=== PATIENT | female | born 1955 | race Caucasian/White ===

== ENCOUNTER 2022-10-27 06:11 | Inpatient (IN) | payer OTHER, SELFPAY ==
[2022-10-20 13:46] VITALS: BMI 27.8
[2022-10-27] VITALS (19 sets, daily range): BP systolic 85–114; BP diastolic 45–72; PULSE 63–96; RESP 10–18; TEMP 36.2–36.6; O2SAT 92–98; BMI 28.2
[2022-10-27] MEDS: LACTATED RINGERS 1,000 ML 42 ML IV ×3 (06:55→11:52)
[2022-10-27 07:20] LABS: COVID19 -Nasal RAPID Negative (Negative)
--- NOTE | 2022-10-27 07:44 | PM.PREOP ---
Pre-operative Note COVID-19 COVID-19 status: Negative Result date/Date tested (Pos, Neg/Pending): 10/26/22 Criteria for continued procedure: Expected advancement of disease process, Possibility delay results in more complex future surgery or treatment, Increased loss of function, Continuing or worsening of significant or severe pain, Deterioration of the patient's condition or overall health and Delay expected to result in less-positive ultimate med/surg outcome Interval Note History & Physical reviewed/Exam performed by Physician: Yes Changes to H&P: No
[2022-10-27] MEDS: CEFAZOLIN 2 GM/100 ML PREMIX 100 ML IV ×3 (07:57→23:23)
--- NOTE | 2022-10-27 08:25 | SUR.OPER ---
Prone on spine table, head in foam head support, padded chest and pelvic supports, gel pad at knees, lower legs supported by pillows; nipples, genitalia and toes free of pressure, arms secured on foam padded arm boards at <90 degrees abduction. Tape over blanket at thigh secured to table. pt positioned per direction and supervision of Dr Fernandez.
[2022-10-27] MEDS: BUPIVACAINE LIPOSOME 266 MG/20 ML VIAL INJ (08:32)
[2022-10-27] MEDS: BUPIVACAINE 0.25% W/ EPI 30 ML VIAL INJ (08:33)
--- NOTE | 2022-10-27 11:03 | DI.RAD.S_ITS ---
PROCEDURE: XR LUMBAR SPINE 2-3V INDICATIONS: L4-5, L5-S1 TLIF TECHNIQUE: 2 spot fluoroscopic intraoperative views of the lumbar spine were acquired. COMPARISON: [facility], CT, CT LUMBAR SPINE WITHOUT CONTRAST, 10/01/2022, 15:17. FINDINGS: Fluoroscopic images demonstrate spinal fixation at L4 through S1 with bilateral pedicle screws and interbody rods as well as disc spacers. Hardware components appear to be in appropriate positions. Previously seen L3 compression fracture is only partially imaged. IMPRESSION: Status post posterior lumbar spinal fixation with hardware in expected positions. Approved by: Reggie Lynch M.D. on 10/27/2022 at 11:24
--- NOTE | 2022-10-27 11:31 | P.OP_ITS ---
Operative Date/Time/Diagnoses Date of procedure: 10/27/22 Time of procedure: 07:40 Pre-op diagnosis: 1. L4-5, L5-S1 spinal stenosis with radiculopathy 2. L4-5, L5-S1 spondylosis with radiculopathy Post-op diagnosis: same Procedure & Clinicians Procedure: 1. L4-5, L5-S1 Postero-lateral and posterior interbody fusion 2. L4-5, L5-S1 interbody cage placement. 3. L4-5, L5-S1 decompressive laminectomy with bilateral facetecomies 4. L4-5, L5-S1 Posterior segmental instrumentation 5. [place] of bone marrow from iliac crest 6. Utilization of microsurgical technique and operating microscope 7. Utilization of robotic assisted navigation Same procedure as scheduled: Yes Indications: Patient has been having chronic back pain and worsening lumbar radiculopathy. Patient failed multiple conservative management with worsening pain weakness and numbness in her lower extremity. Patient has been having difficulty performing activity of daily living. After discussing risks benefits of treatment options, patient elected proceed with surgery. Surgeon: Ellis Fernandez Medical Staff Physician: Chelsea Yun Click Yes if Unassisted: No Anesthesia Type: General Operative Notes Closure Type: primary Specimen(s): none sent Prosthetic devices, grafts, tissues, transplants, or devices: Globus CREO MIS screws, Rise cages Applied: catheter Estimated Blood Loss (mL): 100 Blood products transfused: none Procedure in detail: Patient was seen in the preoperative area. Risks and benefits of the surgery was discussed with the patient. Informed consent was obtained from the patient and placed in the chart. Surgical site was marked. Patient was taken to the operative room. General anesthesia was administered. Prophylactic antibiotic was given to the patient less than 30 min before the incision was made. Patient was placed into a prone position on the Jh table. Patient's back was then prepped and draped in the sterile fashion. Time-out was performed at this time. After patient was prepped and draped, patient's PSIS was palpated and marked bilaterally. Small 1 cm incision was made over the PSIS for placement of the reference probes. Two trocar was placed into the PSIS 1 on each side. The reference probe was attached to the trocar of the reference apparatus. At this time the C-arm imaging was used to confirm AP and lateral of L4-L5, L5- S1 vertebrae and merged the C-arm imaging using the [employer] robotic navigation system with the CT of the lumbar spine. After successful merging was completed and confirmed, skin marker was used to gael out the skin incision using the [employer] robotic arm. Bilateral incision was made at this time. Pre templated trajectory was used and guided using the [employer] robotic navigation system for bilateral L4, L5, S1 pedicle screw placement. This was done by using the robotic arm to guide the high-speed bur to make a cortical entry point. Next a drill was placed also using the robotic arm and guided using the navigation system drilling partially through bilateral L4, L5 and S1 pedicles. Next L4, L5, S1 pedicle screws it was pre templated and measured was placed onto the power driver/sales workers and inserted into the pedicles bilaterally. After all 6 screws were placed C-arm imaging was taken of both AP and lateral to confirm the placement. Excellent placement of the screws were confirmed and a matched precisely with the pre planned screw placement using the navigation system. MARs retractor was inserted using QuickBloxivation guidence. Globus MARS retractors was placed inside the incision and docked onto the L4 and L5 lamina. Using microsurgical technique and operating microscope, a L4, L5 laminectomy and L4-5, L5-S1 facetectomy was performed using a Kerrison rongeur. Patient was found have severe lateral recess and neural foramen stenosis which was fully decompressed after the laminectomy facetectomy. More than 75% of the facets were removed during the process of decompression rendering L4-5, L5-S1 level grossly unstable and required a fusion procedure at the same time. The disc space at L4-5, L5-S1 was identified, and a total diskectomy was performed at L4- 5, L5-S1 level. The endplates were decorticated using a rasp and shaver. The total diskectomy and decortication was performed at L4-5, L5-S1 level in order to to accomplish a L4-5, L5-S1 fusion. The local bone from the laminectomy and facetectomy was saved for local bone grafting. After the total diskectomy and decortication was completed, Trifecta bone graft material was combined with local bone that was harvested earlier. At this time, a separate skin is incision was made over the iliac crest. A Jamshidi needle was inserted into the iliac crest through a separate skin incision. 5 cc of bone marrow aspiration was obtained through the separate skin incision using a Jamshidi needle from the iliac crest. The bone marrow aspiration was combined with local bone and the Trifecta bone grafting material. The bone grafting material was placed into the L4-5, L5-S1 interbody space along with a expandable cage. The cage was expanded to its maximum height using the torque limiting screwdriver. The disc preparation as well as the cage insertion were also performed under navigation guidance. After the cage was placed, AP and lateral C-arm imaging was taken to confirm placement of the cage and excellent position was confirmed. Globus MARS retractor was inserted and docked onto the L4-5, L5-S1 posterolateral gutter on the right side. Using the power drill, posterior- lateral decortication was performed at L4-5, L5-S1 level until bleeding cortical bone was identified. The remaining bone grafting material was placed into the L4-5, L5-S1 posterior lateral gutter he order to accomplish posterolateral fusion at the L4-5, L5-S1 level. At this time the tulips were attached to the L4, L5, S1 pedicle screw shanks. After measuring the length of the rods, they were inserted into the tulips of the pedicle screws and locked in place using locking caps and torque limiting screwdriver bilaterally. Total 6 caps and 2 titanium rods was used in order to complete the posterior instrumentation construct. After all the hardware was placed, and confirmed with AP and lateral C-arm imaging, the wound was then irrigated with sterile normal saline and packed with Ray-Mirela gauze for 3 min to accomplish hemostasis. After the gauze was removed the deep fascia was closed with #1 Vicryl suture. The subcutaneous layer was closed with 2-0 Vicryl. The skin was closed with skin patricia. Patient tolerated the procedure well. There were no complications. Neuro monitoring system was used to monitor patient's neurologic status throughout entire procedure. There was no disturbance of the neural monitoring signals throughout the case. Complications: none Post-operative Condition: stable Disposition: PACU Plan for aftercare: Admit to patient hospital
--- NOTE | 2022-10-27 11:49 | SUR.PHASEI ---
Patient remains with oral airway and simple face mask in place with oxygen at 9 liters. RR even and unlabored; good rise and fall of chest wall noted. No response from patient when provided jaw thrust for airway assist.
--- NOTE | 2022-10-27 12:29 | SUR.PHASEI ---
Report received from Rodolfo Mustafa RN. Pt remains unresponsive with oral airway in place. No further airway assistance required.
--- NOTE | 2022-10-27 13:00 | SUR.PHASEI ---
Patient drowsy but arousable and following all commands when prompted. Denies pain at this time. VSS. Remains on oxygen at 2 liters via nasal cannula with a oxygen saturation of 92-93%; no distress noted.
[2022-10-27] MEDS: SODIUM CHLORIDE 0.9% 1,000 ML 100 ML IV (13:30)
[2022-10-27] MEDS: OXYCODONE IR 5 MG TABLET 10 MG PO ×3 (14:46→23:24)
[2022-10-27] MEDS: ROPINIROLE 1 MG TABLET 3 MG PO (17:12)
[2022-10-27] MEDS: SENNOSIDES 8.6 MG TABLET 17.2 MG PO (20:46)
[2022-10-27] MEDS: COLCHICINE 0.6 MG TABLET PO (20:46)
[2022-10-27] MEDS: DOCUSATE 100 MG CAPSULE PO (20:46)
[2022-10-27] MEDS: diazePAM 5 MG TABLET PO (20:46)
[2022-10-28] VITALS: BP 115/65; PULSE 76; RESP 18; TEMP 36.5; O2SAT 94
[2022-10-28] MEDS: SODIUM CHLORIDE 0.9% 1,000 ML 100 ML IV (00:23)
[2022-10-28] MEDS: ONDANSETRON 4 MG/2 ML INJ IV ×2 (02:14→13:53)
[2022-10-28] MEDS: HYDROMORPHONE 0.5 MG INJ IV ×2 (02:16→21:30)
[2022-10-28 04:00] VITALS: BP 104/59; PULSE 81; RESP 16; TEMP 37.1; O2SAT 92
[2022-10-28 06:06] LABS: Hematocrit 33.4 % (36-46); Hemoglobin 11.3 g/dL (12.0-16.0)
[2022-10-28] MEDS: LEVOTHYROXINE 88 MCG TABLET PO (08:11)
[2022-10-28] MEDS: PANTOPRAZOLE DR 40 MG TABLET PO (08:11)
[2022-10-28] MEDS: COLCHICINE 0.6 MG TABLET PO ×2 (08:12→21:32)
[2022-10-28] MEDS: DOCUSATE 100 MG CAPSULE PO ×2 (08:12→21:32)
[2022-10-28] MEDS: OXYCODONE IR 5 MG TABLET 10 MG PO ×4 (08:12→21:31)
--- NOTE | 2022-10-28 08:40 | P.PN_ITS ---
Subjective Subjective Date Patient Seen: 10/28/22 Time Patient Seen: 08:40 Interval history: Pain has been moderate to severe this morning. Denies fever chills. No nausea or vomiting. Patient does have assistance available home. Otherwise without complaints. Exam Vital Signs (past 8 hours): - 10/28/22 04:00 Temperature 98.8 F Pulse Rate 81 Respiratory Rate 16 Blood Pressure 104/59 L Pulse Oximetry 92 Oxygen Delivery Method Room Air Oxygen Flow Rate 0 Narrative Exam Narrative: Pleasant 66-year-old female resting comfortably in bed in no apparent distress. Motor functions intact bilateral lower extremities. Sensation grossly intact to light touch bilateral lower extremities. Const General: cooperative and comfortable Orientation: alert Chest Other: Mild bruising chest wall. 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 DVT (deep venous thrombosis) Easy bruisability Graves' disease History of dumping syndrome Hypothyroidism Kidney disease Kidney donor (2002) Lower GI bleed (2016) Lupus Neuropathy Osteoarthritis Pericarditis Pleuritis Pulmonary embolism RLS (restless legs syndrome) Single kidney Spinal stenosis Thyroid cancer (2005) Surgical History History of hysterectomy (2001) History of total left hip replacement (2020) Hx of appendectomy (12/24/15) Hx of arthroscopy of right knee (2015) Hx of eye surgery (2010) Hx of hernia repair (2016) Hx of thyroidectomy (2005) Social History household members: spouse Smoking Status: Former smoker alcohol intake: current Assessment & Plan Post-op Postoperative Procedures: Procedures Operation Date: 10/27/22 07:45 Actual Procedure Side Surgeon p L4-5, L5-S1 TLIF w. posterior instrumentation, L3-4 hemilaminectomy -Robot Not Applicable Ellis Fernandez MD Postoperative day: 1 Postoperative status narrative: Antiphospholipid antibody syndrome expected to restart Lovenox bridge 48 hours postop Patient progressing as expected status post lumbar fusion Postoperative plan narrative: Patient to begin Lovenox bridge 48 hours postop. Patient has protocol from her anti coag clinic. Patient has been instructed to call the clinic once discharged from the hospital. Patient will need her current INR and warfarin dosing given at the hospital to provide to anticoagulation clinic. Mobilize with physical therapy, limit bending, twisting, lifting Multimodal pain management Likely discharge home tomorrow. Quality VTE Deep Vein Thrombosis/Pulmonary Embolism Present on Admission: No
[2022-10-28] MEDS: calcitrioL 0.25 MCG CAPSULE 0.5 MCG PO (09:11)
[2022-10-28 10:00] VITALS: BP 104/60; PULSE 84; RESP 17; TEMP 37; O2SAT 95
--- NOTE | 2022-10-28 10:22 | PT.IIE ---
Current Diagnoses Spondylolisthesis, lumbar region (10/27/22) Spinal stenosis, lumbar region with neurogenic claudication (10/27/22) Surgery Performed Operation Date: 10/27/22 07:45 Actual Procedures p L4-5, L5-S1 TLIF w. 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 DVT (deep venous thrombosis) Easy bruisability Graves' disease History of dumping syndrome Hypothyroidism Kidney disease Kidney donor (2002) Lower GI bleed (2016) Lupus Neuropathy Osteoarthritis Pericarditis Pleuritis Pulmonary embolism RLS (restless legs syndrome) Single kidney Spinal stenosis Thyroid cancer (2005) Physical Therapy Inpatient Evaluation/Re-Eval M1 PT/OT-IP Prior Functional Status Start: 10/27/22 15:57 Freq: NEEDED Status: Active Protocol: Document 10/28/22 10:04 [facility] (Rec: 10/28/22 10:22 [facility] [id number]) Medical Review Prior Functional Status Medical History Reviewed Yes Diet/Fluid Consistency Regular Mobility and Gait pt reports she has been using a single point cane Social History Household Members spouse Living Arrangements Mobile home M2 PT-IP Current Condition Start: 10/27/22 15:57 Freq: NEEDED Status: Active Protocol: Document 10/28/22 10:04 [facility] (Rec: 10/28/22 10:22 [facility] [id number]) Physical Therapy Current Condition Current Condition Evaluation Date 10/28/22 Treatment Diagnosis L4-5 L5-S1 spinal stenosis with radiculopathy s/p postero -lateral fusion Onset Date 10/27/22 M3 PT-IP Subjective Start: 10/27/22 15:57 Freq: NEEDED Status: Active Protocol: Document 10/28/22 10:04 [facility] (Rec: 10/28/22 10:22 [facility] [id number]) Subjective Physical Therapy Visit Type Type Initial Evaluation Visit Start Time 09:25 Visit Stop Time 10:05 Total Visit Minutes 40 Therapy Pain Assessment Location Back Intensity 8 Scale Used Numeric (0 - 10) Description Aching Pain Management Techniques Apply Cold,Timing of Activity with Medications M4 PT-IP Mobility and Gait Start: 10/27/22 15:57 Freq: NEEDED Status: Active Protocol: Document 10/28/22 10:04 [facility] (Rec: 10/28/22 10:22 [facility] [id number]) PT-Bed Mobility Assessment Rolling Type of Rolling Log Rolling,Roll to Right Level of Assist Minimal Assistance Supine to Sit Supine to Sit Minimal Assistance Sit to Supine Sit to Supine Minimal Assistance Scooting Scooting to Edge of Bed Minimal Assistance PT-Transfer Assessment Sit to and From Stand Sit to and from Stand Minimal Assistance Equipment Transfer Assistive Device Gait Belt,Front Wheeled Walker Comments Mobility Comments pt was very flushed when laying in bed and notes that she has been dizzy with low blood pressure. She agreed to PT and was eager to work on mobility. She was instructed in log roll to the right and she was able to do tis with Min A, pt then sat up at the edge of bed with Min A. Pt was instructed to sit for a bit to monitor blood pressure. A cool washcloth was given to her as she felt increased dizzyness. Her blood pressure was taken and was 111 /67. She then stood with Min A , gait belt, and fww. After standing for a few minutes she felt ready to sit back down due to the dizzyness . Pt also reports feeling very hot. She returned to sitting with Min A and transfered back to bed with Min A. Pt's call light was placed within reach, the bed alarm was set and pt was given ice for her back M5 PT-IP Objective Assessments Start: 10/27/22 15:57 Freq: NEEDED Status: Active Protocol: Document 10/28/22 10:04 [facility] (Rec: 10/28/22 10:22 [facility] [id number]) Gross Range of Motion Upper Extremity ROM Assessment Within Functional Limits Lower Extremity ROM Assessment Within Functional Limits Strength Upper Extremity Strength Assessment Within Functional Limits Lower Extremity Strength Assessment Within Functional Limits M6 PT-IP Treatment Start: 10/27/22 15:57 Freq: NEEDED Status: Active Protocol: Document 10/28/22 10:04 [facility] (Rec: 10/28/22 10:22 [facility] [id number]) Physical Therapy Treatment Exercises Exercises Ankle Pumps,Gluteal Sets Education Education Provided Precautions,Safety M7 PT-IP Assessment and Plan Start: 10/27/22 15:57 Freq: NEEDED Status: Active Protocol: Document 10/28/22 10:04 [facility] (Rec: 10/28/22 10:22 [facility] [id number]) PT Summary Assessment and Plan Potential Rehabilitation Potential Excellent Status of Condition at Evaluation Stable Summary Impairments Pain,Strength,Bed Mobility, Transfers,Gait,Activity Tolerance Assessment Summary Nina is a 66 year old female post op day 1 from L4-5 L5-S1 posterior-lateral and posterior interbody fusion with cage placement, decompressive laminectomy with bilateral facetecomies, bone marrow from iliac crest. She lives with her and will have assistance when at home. I reviewed precautions of no lifting, bending, or twisting. She reported her pain was a 8/10 last night but had gone down to a 4/10 this am after pain meds. She noted c/o dizzyness and feeling very hot and flushed. Her face did appear flushed. Pt was a min A for bed mobility and transfers. She stood with fww, gait belt and min A at the edge of the bed. She was limited with progressing further due to her c/o dizzyness. Blood pressure was 111/67 in sitting . Nina is a good candidate for PT Goals Bed Mobility Goal Independent Transfer Goal Standby Assistance Gait Goal Standby Assistance Gait Distance 50 feet Days to Meet Goals 5 Frequency of Treatment Frequency Of Treatment Twice a Day Treatment Plan Physical Therapy Treatment Plan Bed Mobility Training,Transfer Training,Gait Training, Therapeutic Exercise Precautions Lumbar Precautions Log Roll,No Twisting,Limit Bending,Gait Belt above Incisional Area Recommendations To Nursing Amount of Assist Needed 1 Person Assist Discharge Recommendations PT Discharge Recommendations Home with Assistance
--- NOTE | 2022-10-28 10:34 | CM.DANOTE ---
Addendum entered by CAMERON Barksdale 10/28/22 13:57: ADD: SW attempted to meet bedside with pt again but PT just starting and per PT and RN, pt continues to have nausea which is limiting her ability to participate in therapies and attempt ambulation. Pt not medically stable to d/c today. PT continuing to attempt working with pt right now. SW to follow closely for d/c needs in the AM for home vs SNF. BF Addendum entered by CAMERON Barksdale 10/28/22 12:49: ADD: Per PT, pt had some flushing, dizziness, and orthostatics but was able to participate a little with PT and recommending likely d/c home with spouse assist when more medically stable and appropriate. PT to continue working with pt. BF Original Note: Patient is a 66 yo female who was admitted on 10/27/22 for TLIF. Pt has [facility] for insurance and her PCP is not listed. EMR was reviewed. Per Ortho, pt with some pain management issues today and orthostatics are low. PT/OT ordered. SW met bedside with pt and spouse and explained role and they confirm they live in [place] and pt is typically independent at baseline with ADLs and drives and does not use DME for ambulation. Pt has a hx of hip surgery a couple years ago and was able to d/c home with spouse assist and outpt f/u. Pt denies any HH or SNF hx and is hopeful for home but clearly feeling poorly today. Spouse confirms he is healthy and active and available for assist at d/c. SW provided the SNF Choice list and identified the [facility] in case pt is limited by pain and bp issues. SW discussed would need to be a [facility] contracted SNF facility and would need to get [facility] for coverage if SNF needed. Spouse also given the paper list to review as well. PT met bedside but waiting for pain meds and bp to improve and will then complete eval to determine recommendations. Plan: SW to follow closely for PT/OT eval and recommendations to determine Home vs SNF at d/c. Pt would need [facility] if SNF. CAMERON Barksdale Discharge Planning/Care Management CM Discharge Assessment Start: 10/28/22 10:32 Freq: Status: Active Protocol: Document 10/28/22 10:32 BF (Rec: 10/28/22 10:34 BF [id number]) Discharge Planning Assessment Assigned Aboriginal Ceremonial Celebrant CAMERON Garcia DPOA/Assigned Designee Name spouse Bill Contact Information [phone] Advance Directives? Yes Advance Directives on File No History Provided By Patient,Significant Other, Medical Record Has Patient been admitted in last 30 No days? Prior Living Arrangements Mobile home Household Members spouse Type of transporation used prior to Drives own vehicle admit Is patient alert and oriented? Yes Caregiver for Another No Community Services used prior to Physical Therapy admission: DME Already Rented / Owned FWW / Walker Patient/Family Preference [facility],Home with Home Health Comment SNF vs HH pending PT/OT eval and recommendations Barriers to Discharge No Discharge Plan Home with Home Health Transportation Arrangement Spouse bedside and can transport at d/c if pt safe for POV Additional Comment Pending PT/OT eval to determine home vs SNF Medicare Choice List Provided Yes Medicare choice list reviewed on patient,family electronic tablet with SNF/HH Preference If SNF needed, will need [facility] SN[facility] Whiteboard Updated in Patient Room with Yes name and ext. # of Aboriginal Ceremonial Celebrant Review Status In Process Please Provide Date Initial DC 10/28/22 Assessment Was Performed Next Review Type Continued Stay Review Pre-Anesthesia Assessment Start: 10/20/22 13:46 Freq: Status: Complete Protocol: Document 10/20/22 13:46 CAB (Rec: 10/20/22 14:44 CAB [id number]) Pre-Anesthesia Assessment Patient Information Reviewed Via Phone Assessment Assessment Completed With Patient Comment labs/EKG done, surgeon has, not here Primary Care Provider eric Seen Specialist in Last 12 Months Yes Specialist Seen Candles Pourer,Oncologist, Orthopedist,Other Primary Language Nicaraguan Human Resources Project Manager Required No Height 168.91 cm Weight 79.379 kg Body Mass Index (BMI) 27.8 Hearing Ability Normal Visual Assist Glasses Dentition Type Teeth, Natural Present Barriers to Learning Visual Hx Anesthesia Reactions No Hx Family Anesthesia Reaction No Hx Malignant Hyperthermia No Hx Blood Transfusions No Anesthesia Review Requested No Chief Medical Physicist No alcohol intake current alcohol intake frequency holidays/special occasions only Smoking Status Former smoker how long ago did patient quit smoking Quit in her 20's Substance Use Type does not use Pain Present Pain Reported Musculoskeletal Symptoms Abnormal Gait,Back Pain, Difficulty Walking,Numbness, Radiating Pain into Limb, Tingling History of Falling (Recent or History of No ) Patient is completely paralyzed or No completely immobile Prosthesis or Orthotic Device Cane Mental Status Oriented to own ability Is patient on oxygen? No Does patient have ELLIOTT/SOB No Hx Sleep Apnea No Currently Taking a Beta Naveen No Can You Climb a Flight of Stairs Without No SOB Hx Chest Pain No Hx SOB No Hx Syncope or Dizziness No Anti-Coagulant Therapy Yes: Warfarin-hold 5-7 days per Cardiology-pt has lovenox bridging instructions Has a Candles Pourer Yes Candles Pourer name Dr Bradford Cardiac Testing No Hx Pacemaker/ICD No Pacemaker Rep Required? No Cardiac Clearance Received Yes Comment Cardiac records scanned Diet Type At Home Regular Dysphagia No Gastrointestinal Symptoms Constipation Chronic UTI No Urinary Catheter Present No Hx Urinary Self Catheterization No Diabetes No Patient No Lactating No Hx Drug Resistant Organism Yes: C-Diff x 2 Presence of External or Internal Medical Yes: Left hip prosthesis Devices Received a COVID vaccine? Yes Received all doses? No Marital Status Lives With spouse Current Living Arrangements Mobile home Number of Floors (Floors) One Floor Support System Spouse Does the Patient Have Assistance After Yes Surgery Patient Discharge Plan Description Return Home Comment Pt advised 2-3 day length of stay per surgeon Feels Safe in Current Environment Yes Been Physically Hurt or Threatened By a No Person in Current Environment Do you have thoughts of harming yourself None or others? Are you currently considering suicide? No Do you have a plan to hurt yourself or No Plan others? Do You Have Any Spiritual Beliefs That No May Affect Your HC Choices? Do You Have Any Cultural Practices That No May Affect Your HC Choices? Comment Ni Who Can We Speak to About Patient's Care Family, friends Identifying Code for Release of Patient Declines to issue Information Health Care Proxy/Next of Kin Bill () Health Care Proxy or [phone] Emergency Contact Name Bill () Emergency Contact or [phone] Advance Directives? Yes Advance Directives on File No Requested Patient Bring Advanced Yes Directives DOS Power of Shotgun Shell Assembly Machine Adjuster Yes Power of Shotgun Shell Assembly Machine Adjuster Name Bill () Power of Shotgun Shell Assembly Machine Adjuster or [phone] PAC Instructions Durable medical equipment, Medications to take/avoid, Nasal antibiotic,No ETOH/ petroleum product on skin DOS, NPO,Post-op transportation,Pre -surgical wash,Sensory aids, Sturdy shoes/comfortable clothes,Do not bring valuables and remove jewelry
[2022-10-28 12:51] VITALS: BP 117/69; PULSE 83; RESP 16; TEMP 37.4; O2SAT 96
--- NOTE | 2022-10-28 14:08 | OT.IPNOTE ---
Pt is bed and not feeling well, pt requesting to do OT eval tomorrow.
--- NOTE | 2022-10-28 14:19 | PT.IPTN ---
Current Diagnoses Spondylolisthesis, lumbar region (10/27/22) Spinal stenosis, lumbar region with neurogenic claudication (10/27/22) Surgery Performed Operation Date: 10/27/22 07:45 Actual Procedures p L4-5, L5-S1 TLIF w. posterior instrumentation, L3-4 hemilaminectomy -Robot(Not Applicable) - Ellis Fernandez MD Physical Therapy Treatment Note M2 PT-IP Current Condition Start: 10/27/22 15:57 Freq: NEEDED Status: Active Protocol: Document 10/28/22 10:04 [facility] (Rec: 10/28/22 10:22 [facility] [id number]) Physical Therapy Current Condition Current Condition Evaluation Date 10/28/22 Treatment Diagnosis L4-5 L5-S1 spinal stenosis with radiculopathy s/p postero -lateral fusion Onset Date 10/27/22 M3 PT-IP Subjective Start: 10/27/22 15:57 Freq: NEEDED Status: Active Protocol: Document 10/28/22 14:06 LJ (Rec: 10/28/22 14:19 LJ [id number]) Subjective Physical Therapy Visit Type Type Treatment Note Visit Start Time 13:50 Visit Stop Time 14:03 Total Visit Minutes 13 Notes Pt lying in bed requesting to change positions BP taken at begiinning of treatment. WNL Pain medication given 1.5 hrs ago Number of LAUNDRY AIDE Visits 1 Physical Therapy Visit Comments Patient Comments Feeling nauseated from Latte brought her Therapy Pain Assessment Pain When Pain Assessed During Mobility Pain Present Pain Present Pain Reported Location Back Scale Used pt unspecified Pain Behaviors Facial Grimacing,Guarding, Wincing Pain Management Techniques Apply Cold,Timing of Activity with Medications M4 PT-IP Mobility and Gait Start: 10/27/22 15:57 Freq: NEEDED Status: Active Protocol: Document 10/28/22 14:06 LJ (Rec: 10/28/22 14:19 LJ [id number]) PT-Bed Mobility Assessment Rolling Type of Rolling Log Rolling,Roll to Right Level of Assist Minimal Assistance Supine to Sit Supine to Sit Minimal Assistance Sit to Supine Sit to Supine Minimal Assistance Scooting Scooting to Edge of Bed Minimal Assistance PT-Transfer Assessment Comments Mobility Comments Pt unable to attempt standing due to nausea and pain. Sat on side of bed for ~2 minutes then laid back down. Carlos to lift LEs back onto bed. Pt in right sidelying. Applied ice packs on surgical site and made pt comfortable. All needs within reach. M5 PT-IP Objective Assessments Start: 10/27/22 15:57 Freq: NEEDED Status: Active Protocol: Document 10/28/22 10:04 [facility] (Rec: 10/28/22 10:22 [facility] [id number]) Gross Range of Motion Upper Extremity ROM Assessment Within Functional Limits Lower Extremity ROM Assessment Within Functional Limits Strength Upper Extremity Strength Assessment Within Functional Limits Lower Extremity Strength Assessment Within Functional Limits M6 PT-IP Treatment Start: 10/27/22 15:57 Freq: NEEDED Status: Active Protocol: Document 10/28/22 14:06 LJ (Rec: 10/28/22 14:19 LJ [id number]) Physical Therapy Treatment Education Education Provided Precautions,Safety M7 PT-IP Assessment and Plan Start: 10/27/22 15:57 Freq: NEEDED Status: Active Protocol: Document 10/28/22 14:06 LJ (Rec: 10/28/22 14:19 LJ [id number]) PT Summary Assessment and Plan Potential Rehabilitation Potential Excellent Status of Condition at Evaluation Stable Summary Impairments Pain,Strength,Bed Mobility, Transfers,Gait,Activity Tolerance Progress Towards Goals Slow Progress due to Pain,Slow Progress due to Medical Issues,Slow Progress due to Activity Tolerance Assessment Summary Pt able to tolerate limited activity today due to pain and nausea. Will check back tomorrow and continue to assess appropriateness for treatment. Goals Bed Mobility Goal Independent Transfer Goal Standby Assistance Gait Goal Standby Assistance Gait Distance 50 feet Days to Meet Goals 5 Frequency of Treatment Frequency Of Treatment Twice a Day Treatment Plan Physical Therapy Treatment Plan Bed Mobility Training,Transfer Training,Gait Training, Therapeutic Exercise Discharge Recommendations PT Discharge Recommendations Home with Assistance
[2022-10-28] MEDS: ROPINIROLE 1 MG TABLET 3 MG PO (16:12)
[2022-10-28 16:48] VITALS: BP 117/61; PULSE 86; RESP 16; TEMP 36.9; O2SAT 93
[2022-10-28 20:45] VITALS: BP 109/61; PULSE 81; RESP 17; TEMP 36.4; O2SAT 95
[2022-10-28] MEDS: diazePAM 5 MG TABLET PO (21:31)
[2022-10-28] MEDS: SENNOSIDES 8.6 MG TABLET 17.2 MG PO (21:31)
[2022-10-29] VITALS (8 sets, daily range): BP systolic 93–128; BP diastolic 54–72; PULSE 78–91; RESP 16–18; TEMP 36.3–37.6; O2SAT 92–95
[2022-10-29] MEDS: SODIUM CHLORIDE 0.9% 1,000 ML 100 ML IV (01:16)
[2022-10-29] MEDS: OXYCODONE IR 5 MG TABLET 10 MG PO ×3 (05:02→16:09)
[2022-10-29] MEDS: ONDANSETRON 4 MG/2 ML INJ IV ×3 (05:02→21:01)
[2022-10-29] MEDS: PANTOPRAZOLE DR 40 MG TABLET PO (08:06)
[2022-10-29] MEDS: LEVOTHYROXINE 88 MCG TABLET PO (08:06)
[2022-10-29] MEDS: COLCHICINE 0.6 MG TABLET PO ×2 (08:06→20:58)
[2022-10-29] MEDS: DOCUSATE 100 MG CAPSULE PO ×2 (08:06→20:58)
[2022-10-29] MEDS: ACETAMINOPHEN 325 MG TABLET 650 MG PO ×3 (08:35→17:59)
[2022-10-29] MEDS: ENOXAPARIN 40 MG/0.4 ML SYRINGE SUBCUT (08:35)
[2022-10-29] MEDS: calcitrioL 0.25 MCG CAPSULE 0.5 MCG PO (08:35)
--- NOTE | 2022-10-29 09:34 | OT.IP.EVAL ---
Current Diagnoses Spondylolisthesis, lumbar region (10/27/22) Spinal stenosis, lumbar region with neurogenic claudication (10/27/22) Surgery Performed Operation Date: 10/27/22 07:45 Actual Procedures p L4-5, L5-S1 TLIF w. 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 DVT (deep venous thrombosis) Easy bruisability Graves' disease History of dumping syndrome Hypothyroidism Kidney disease Kidney donor (2002) Lower GI bleed (2016) Lupus Neuropathy Osteoarthritis Pericarditis Pleuritis Pulmonary embolism RLS (restless legs syndrome) Single kidney Spinal stenosis Thyroid cancer (2005) Surgical History (Last Reviewed 10/29/22 @ 11:29 by Swathi Kearney PA-C) History of hysterectomy (2001) History of total left hip replacement (2020) Hx of appendectomy (12/24/15) Hx of arthroscopy of right knee (2015) Hx of eye surgery (2010) Hx of hernia repair (2016) Hx of thyroidectomy (2005) Occupational Therapy Inpatient Evaluation/Re-Eval M1 PT/OT-IP Prior Functional Status Start: 10/27/22 15:57 Freq: NEEDED Status: Active Protocol: Document 10/29/22 09:05 [facility] (Rec: 10/29/22 13:03 [facility] [id number]) Medical Review Prior Functional Status Medical History Reviewed Yes Diet/Fluid Consistency Regular Mobility and Gait pt reports she has been using a single point cane Activities of Daily Living and IADL's Pt states able to do ADL and IADl needs but had pain. Social History Household Members spouse Living Arrangements Mobile home Number of Floors (Floors) One Floor Number of Stairs To Enter/Railing? 4 steps and has a ramp Home Environment High Toilet,Walk in Shower Home Equipment Four Wheel Walker,Straight Cane,Hand Held Shower,Long Handled Sponge,Long Handled Shoe Horn,Babysitter,Sock Aid, Grab Bars In Shower Additional Social History Comment Built in seat M2 OT-IP Current Condition Start: 10/29/22 12:32 Freq: Status: Active Protocol: Document 10/29/22 09:05 [facility] (Rec: 10/29/22 13:03 [facility] [id number]) Occupational Therapy Current Condition Current Condition Evaluation Date 10/29/22 Treatment Diagnosis S/p L4-5, L5-S1 TLIF with post inst, L3-4 hemilaminectomy Diagnosis Onset Date 10/27/22 Post Operative Precautions Lumbar Precautions Log Roll,No Twisting,Limit Bending,Lifting Restriction of 10 lbs,Gait Belt above Incisional Area M3 OT- IP Subjective and Pain Start: 10/29/22 12:32 Freq: Status: Active Protocol: Document 10/29/22 09:05 [facility] (Rec: 10/29/22 13:03 [facility] [id number]) OT- Subjective Occupational Therapy Visit Type Type Initial Evaluation Visit Start Time 09:05 Visit Stop Time 09:34 Total Visit Minutes 29 Occupational Therapy Visit Comments Patient Comments Pt agreed to get up. Pt complaining of pain in the back of her left knee to touch, nursing notified. Patient/Caregiver Goals To go home. OT Pain Assessment Pain When Pain Assessed At Rest Pain Present Pain Present Pain Reported Location Back Intensity 7 Scale Used Numeric (0 - 10) M4 OT- IP ADL's Start: 10/29/22 12:32 Freq: Status: Active Protocol: Document 10/29/22 09:05 [facility] (Rec: 10/29/22 13:03 [facility] [id number]) OT [id number] Comments OT Self-Feeding Comments Not at meal time. OT ADL-Grooming Comments OT Grooming Comments Pt not wanting to perform. OT ADL-Oral Care Comments Oral Care Comments Pt not wanting to do at this time. Able to educated pt best to just spit into a cup or hinge at her hips to spit into a cup. OT ADL-Dressing General Eval Lower Body Dressing Ability Maximum Assistance Areas Needing Assistance Socks Comments OT Dressing Comments Pt has all LB dressing equipment from a hip sx 04/2021 and aware of how to use the equipment. OT ADL-Toileting General Evaluation Toileting Ability Total Assistance Comments OT Toileting Comments Canseco in place OT ADL-Bathing Comments OT Bathing Comments Not performed. M5 OT- IP IADL's Start: 10/29/22 12:32 Freq: Status: Active Protocol: Document 10/29/22 09:05 [facility] (Rec: 10/29/22 13:03 [facility] [id number]) OT-Instrumental Activities of Daily Living Deficits IADL Deficits Identified Deficits Home Safety Awareness Awareness of Need for Assistance at Home Good Awareness Home Safety Comments Pt has a supportive to be able to assist. Pt's initially left the room when OT working with pt as his states he does not deal well with pain or blood. Able to have pt come back later and worked with COTTON PICKING MACHINE OPERATOR for initiation of caregiver training needs. M6 OT- IP Functional Cognition Start: 10/29/22 12:32 Freq: Status: Active Protocol: Document 10/29/22 09:05 [facility] (Rec: 10/29/22 13:03 [facility] [id number]) Cognitive Factors Limiting Selfcare Function Cognitive Ability Level of Alertness Alert,Drowsy Patient Orientation Name,Place,Situation Attention Span Ability Capable of Focused Attention, Capable of Sustained Attention Ability to Follow Commands Able to Follow One Step Commands Safety Awareness Decreased Recall of Precautions,Decreased Ability to Apply Precautions Cognitive Comments Cognitive Assessment Comments Pt moving slowly and needing increased time to move as well . Pt needing cues to recall her precautions and for hand placement during log rolling needs. OT- Vision and Hearing OT- Hearing Assessment OT- Hearing Assessment WFL OT- Vision Assessment Visual Acuity Glasses For Reading M7 OT- IP Mobility and Balance Start: 10/29/22 12:32 Freq: Status: Active Protocol: Document 10/29/22 09:05 [facility] (Rec: 10/29/22 13:03 [facility] [id number]) OT- Bed Mobility Assessment Supine to Sit Supine to Sit Assist Minimal Assistance Sit to Supine Sit to Supine Assist Moderate Assistance OT-Transfer Assessment Sit to and From Stand Sit to and from Stand Minimal Assistance Transfers Transfer Ability Minimal Assistance,Moderate Assistance Technique Transfer Destination Bed,Chair Transfer Technique Stand Step Pivot Devices Transfer Assistive Devices Gait Belt,Front Wheeled Walker Comments Mobility Comments ADRIANA to help her trunk upright and MODA to help get her legs into the bed. BP supine 99/ 53, sitting 123/71, standing 104/53 and go nauseous and back to sitting 109/63. Pt only able to tolerate transfer to the recliner and wanting to get right back to bed as not feeling well. OT- Balance Assessment Sitting Balance and Reactions Static Sitting Balance Ability Good Dynamic Sitting Balance Ability Fair Standing Balance and Reactions Static Standing Balance Ability Fair Dynamic Standing Balance Ability Poor M8 OT- IP Objective Assessments Start: 10/29/22 12:32 Freq: Status: Active Protocol: Document 10/29/22 09:05 [facility] (Rec: 10/29/22 13:03 [facility] [id number]) OT-Muscle Tone Assessment Muscle Tone WNL Yes M9 OT- IP Assessment and Plan Start: 10/29/22 12:32 Freq: Status: Active Protocol: Document 10/29/22 09:05 [facility] (Rec: 10/29/22 13:03 [facility] [id number]) OT Summary Assessment and Plan Potential Rehabilitation Potential Good Analytic Complexity at Evaluation Low Summary OT Impairments Pain,Balance,Functional Mobility,Grooming,Dressing, Toileting,Bathing,Toilet Transfers,Shower Transfers, Activity Tolerance Progress Towards Goals Slow Progress due to Pain,Slow Progress due to Medical Issues,Slow Progress due to Activity Tolerance Assessment Summary Pt low complexity and main barriers are pain, a little hypotensive when standing and only able to tolerate transfer at this time. Pt hoping to go home but moving slowly and not feeling well. Pt may need short skilled rehab versus home with if able to complete caregiver training. Goals Grooming Goal Independent Dressing Goal Independent Toileting Goal Independent Bathing Goal Minimal Assistance Toilet Transfer Goal Independent Shower Transfer Goal Standby Assistance Patient/Caregiver Education Goal Caregiver Independent Assisting Patient Days to Meet Goals 15 Frequency of Treatment Frequency Of Treatment Once a Day Treatment Plan OT Treatment Plan ADL Training,Functional Mobility,Patient/Family Education,Discharge Planning Other Treatment Recommendations and Next CAregiver training with Treatment Focus Discharge Recommendations OT Discharge Recommendations SNF Rehab,Home vs SNF Other Discharge Recommendations Pending caregiver training and progress skilled rehab versus home with and home health. Transportation Needs at Discharge Wheelchair/Cabulance
--- NOTE | 2022-10-29 11:27 | P.PN_ITS ---
Subjective Subjective Date Patient Seen: 10/29/22 Time Patient Seen: 11:27 Interval history: Patient is complaining of moderate to severe low back pain. She is also dizzy and was hypo static with physical therapy. She has had nausea and vomiting. We have just resumed her Lovenox bridge and will start her warfarin today. Her is at bedside. Exam Vital Signs (past 8 hours): - 10/29/22 03:50 10/29/22 07:57 10/29/22 08:37 Temperature 97.9 F 97.4 F L Pulse Rate 88 89 Respiratory Rate 17 18 Blood Pressure 125/68 101/64 Pulse Oximetry 92 92 Oxygen Delivery Method Room Air Oxygen Flow Rate 0 0 Oxygen Delivery Method Room Air Oxygen Flow Rate 0 Narrative Exam Narrative: 66-year-old female, resting comfortably in bed, no acute distress. Dressing demonstrates some scant bloody drainage, no surrounding erythema, induration, or arian pus. Bilateral lower extremity: Motor functions are grossly intact, sensation is grossly intact to light touch, calves are soft and nontender to palpation. 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 DVT (deep venous thrombosis) Easy bruisability Graves' disease History of dumping syndrome Hypothyroidism Kidney disease Kidney donor (2002) Lower GI bleed (2016) Lupus Neuropathy Osteoarthritis Pericarditis Pleuritis Pulmonary embolism RLS (restless legs syndrome) Single kidney Spinal stenosis Thyroid cancer (2005) Surgical History History of hysterectomy (2001) History of total left hip replacement (2020) Hx of appendectomy (12/24/15) Hx of arthroscopy of right knee (2015) Hx of eye surgery (2010) Hx of hernia repair (2016) Hx of thyroidectomy (2005) Social History household members: spouse Smoking Status: Former smoker alcohol intake: current Assessment & Plan Post-op Postoperative Procedures: Procedures Operation Date: 10/27/22 07:45 Actual Procedure Side Surgeon p L4-5, L5-S1 TLIF w. posterior instrumentation, L3-4 hemilaminectomy -Robot Not Applicable Ellis Fernandez MD Postoperative day: 2 Postoperative status: marginal pain control Postoperative status narrative: -stable status post L4-5, L5-S1 TLIF with posterior instrumentation, L3-4 hemilaminectomy -history of Antiphospholipid antibody syndrome, expected to restart Lovenox bridge 48 hours postop -orthostatic hypotension Postoperative plan narrative: -mobilize with PT/OT. Weightbearing as tolerated with front wheel walker/cane. No bending, lifting, twisting x6 weeks. -Encouraged dangling her legs at the side of the bed for 5 minutes before standi ng, then standing for 2 minutes before walking to help with orthostatic hypotension. -continue multimodal pain management -resume Lovenox bridge and warfarin loading dose today. Continue with Lovenox 40 mg 1 injection subcu daily, discontinue once INR is greater than 2.0. Warfarin plan: 10 mg today, 7.5 mg tomorrow, then resume normal schedule (5 mg daily x5 days per week, 7.5 mg x 2 days per week). -Anticoagulation clinic is requesting doses of Lovenox and warfarin as well as INR prior to discharge. -disposition: Possibly home today if orthostatic hypotension symptoms resolve, otherwise home tomorrow with and possible home health Quality VTE Deep Vein Thrombosis/Pulmonary Embolism Present on Admission: No
[2022-10-29 11:29] LABS: INR 1.2 (0.9-1.3)
[2022-10-29] MEDS: WARFARIN 5 MG TABLET 10 MG PO (11:48)
--- NOTE | 2022-10-29 12:13 | PT.IPTN ---
Current Diagnoses Spondylolisthesis, lumbar region (10/27/22) Spinal stenosis, lumbar region with neurogenic claudication (10/27/22) Surgery Performed Operation Date: 10/27/22 07:45 Actual Procedures p L4-5, L5-S1 TLIF w. posterior instrumentation, L3-4 hemilaminectomy -Robot(Not Applicable) - Ellis Fernandez MD Physical Therapy Treatment Note M2 PT-IP Current Condition Start: 10/27/22 15:57 Freq: NEEDED Status: Active Protocol: Document 10/29/22 11:39 SP (Rec: 10/29/22 14:24 SP [id number]) Physical Therapy Current Condition Current Condition Evaluation Date 10/28/22 Treatment Diagnosis L4-5 L5-S1 spinal stenosis with radiculopathy s/p postero -lateral fusion Onset Date 10/27/22 M3 PT-IP Subjective Start: 10/27/22 15:57 Freq: NEEDED Status: Active Protocol: Document 10/29/22 11:39 SP (Rec: 10/29/22 14:24 SP [id number]) Subjective Physical Therapy Visit Type Type Treatment Note Visit Start Time 11:39 Visit Stop Time 12:13 Total Visit Minutes 34 Notes in room when arrived. Observed tx due to increased assist required and vitals concerning. VItals: -HOB 20% incline: BP 78/35 HR 80 SaO2 91-93% on RA. -HOB flat: 99/56 -Seated EOB: 104/62 HR 82 -Seated chair post mob: 104/ 62 HR 84 Number of SHUT OFF WORKER Visits 2 Physical Therapy Visit Comments Patient Comments Pt willing to mobilize with PT . Patient Goals Return home with to assist her. Therapy Pain Assessment Pain When Pain Assessed At Rest Pain Present Pain Present Pain Reported Location L posterior thigh/knee Scale Used senstive to touch, moderate pain with mob Description With Movement Pain Behaviors Facial Grimacing,Wincing Pain Management Techniques Distraction,Modification of Treatment,Re-positioning Back Intensity 6 Scale Used 6/10 rest, 7/10 back with mobility Pain Behaviors Facial Grimacing,Guarding, Wincing Pain Management Techniques Apply Cold,Distraction, Modification of Treatment,Re- positioning,Timing of Activity with Medications M4 PT-IP Mobility and Gait Start: 10/27/22 15:57 Freq: NEEDED Status: Active Protocol: Document 10/29/22 11:39 SP (Rec: 10/29/22 14:24 SP [id number]) PT-Bed Mobility Assessment Rolling Type of Rolling Log Rolling,Roll to Right, Bilateral Level of Assist Contact Guard Assistance Supine to Sit Supine to Sit Moderate Assistance,Maximum Assistance,1 Person Assistance ,Bedrails Scooting Scooting to Edge of Bed Minimal Assistance,Moderate Assistance PT-Transfer Assessment Sit to and From Stand Sit to and from Stand Moderate Assistance,Maximum Assistance,2 Person Assistance ,Use of Upper Extremities Equipment Transfer Assistive Device Gait Belt,Front Wheeled Walker Transfers Transfer Destination Chair,Toilet Transfer Technique ambulated with FWW Transfer Ability Level of Assist Minimal Assistance,Moderate Assistance,2 Person Assistance ,Use of Upper Extremities Comments Mobility Comments Low BP 20% elevation 78/35, improved with mobility but not at baseline 110-115/70-80s. Mod/Max A x1 trunk right to sit and support due to retro lean, scoot to EOB heavy BUEs. sit EOB Carlos >sBA to take meds from nurse CG/SBA. STS Mod/Max A x2 w/ FWW cues for proper hand positioning throughout tx. Instructed wt / october for WB assessment and BP assessment WNL. Gait w / FWW bed> bathroom Min A x2> x1 approx 10 ft . Cued for safety pivot/back up fully toilet, Min/Mod A slow sit with use grab bars. Able to void, STS Mod A x1 w/ FWW pt able complete pericare CG/ MIn A and use grab bar support. Gait to sink approx 10 ft Min/ ModA x1 heavy BUE WB on FWW cued upright posture, washed hands at sink Min/Mod A x1 few trunk sways and UE support on sink as needed/ BLEs little unsteady. Gait to chair w/FWW 8 ft Min/Mod A for trunk stability cues back up to chair/ reach back Carlos slow descent sit in chair. Instructed heel raises/toe raises, , october 1-2 reps each for self strength/ROM/ circulation mobility as tolerated while up in chair. Recommending continued skilled PT to progress strength/ mobility. Will continue to assess progress. Gait Assessment Gait Gait Assistance Required: Minimum Assistance,Moderate Assistance,1 Person Assist Distance (Feet) 28 Able to Maintain Weight Bearing Status Yes During Gait Assistive Devices Assistive Device Gait Belt,Front Wheeled Walker Orthotic/Prosthetic Devices or Brace: No Gait Deviations General Gait Pattern Antalgic,Decreased Stride Length,Decreased Feet Clearance,Flexed Trunk,Lateral Trunk Lean,Narrow Based Gait, Step-to Gait Factors Limiting Gait Function Factors Limiting Gait Function Decreased Activity Tolerance, Decreased Sensation,Decreased Strength,Difficulty Following Directions,Limited Range of Motion,Pain,Poor Balance,Poor Safety Awareness Comments Gait Comments see mobility comments Stair Climbing Assessment Comments Stair Climbing Comments Has stairs but can use ramp to enter home. PT-Balance Assessment Sitting Balance and Reactions Static Sitting Balance Ability Fair Dynamic Sitting Balance Ability Poor Standing Balance and Reactions Static Standing Balance Ability Fair Dynamic Standing Balance Ability Poor Device Used FWW M5 PT-IP Objective Assessments Start: 10/27/22 15:57 Freq: NEEDED Status: Active Protocol: Document 10/28/22 10:04 [facility] (Rec: 10/28/22 10:22 [facility] [id number]) Gross Range of Motion Upper Extremity ROM Assessment Within Functional Limits Lower Extremity ROM Assessment Within Functional Limits Strength Upper Extremity Strength Assessment Within Functional Limits Lower Extremity Strength Assessment Within Functional Limits M6 PT-IP Treatment Start: 10/27/22 15:57 Freq: NEEDED Status: Active Protocol: Document 10/29/22 11:39 SP (Rec: 10/29/22 14:24 SP [id number]) Physical Therapy Treatment Exercises Exercises Ankle Pumps,Seated Knee Flexion/Extension Other Treatments Other Treatment Performed see mobility comments, cued for breath and abdominal bracing some during mobility to decrease LBP sharp/spasming . M7 PT-IP Assessment and Plan Start: 10/27/22 15:57 Freq: NEEDED Status: Active Protocol: Document 10/29/22 11:39 SP (Rec: 10/29/22 14:24 SP [id number]) PT Summary Assessment and Plan Potential Rehabilitation Potential Excellent Status of Condition at Evaluation Stable Summary Impairments Pain,Strength,Bed Mobility, Transfers,Gait,Activity Tolerance Progress Towards Goals Slow Progress due to Pain,Slow Progress due to Medical Issues,Slow Progress due to Activity Tolerance Assessment Summary Pt orthostatic initially, improved with mobility, decreased strength/endurance, requires Max A bed mob, Mod/ Max A x2 STS and Mod A x1 w/ FWW short distance gait unsteady require trunk support . Pt benefit continued skilled PT. Will continue to assess progress. Goals Bed Mobility Goal Independent Transfer Goal Standby Assistance Gait Goal Standby Assistance Gait Distance 50 feet Days to Meet Goals 5 Frequency of Treatment Frequency Of Treatment Twice a Day Treatment Plan Physical Therapy Treatment Plan Bed Mobility Training,Transfer Training,Gait Training, Therapeutic Exercise Other Recommendations and Next Treatment Check orthostatic BPs, CGT Focus with when able, bed mob, transfers, gait further distance. Precautions Lumbar Precautions Log Roll,No Twisting,Limit Bending,Lifting Restriction of 10 lbs,Gait Belt above Incisional Area Other Precautions Good recall to precautions 3/3 Recommendations To Nursing Amount of Assist Needed 2 Person Assist Discharge Recommendations PT Discharge Recommendations Home with 22/03 Assist Available,Home Health,SNF Rehab,Home vs SNF Equipment Needed for Home Before acquired FWW and Discharge toilet riser. Transportation Needs at Discharge Private Vehicle,Wheelchair/ Cabulance
--- NOTE | 2022-10-29 12:57 | PT.IPTN ---
Current Diagnoses Spondylolisthesis, lumbar region (10/27/22) Spinal stenosis, lumbar region with neurogenic claudication (10/27/22) Surgery Performed Operation Date: 10/27/22 07:45 Actual Procedures p L4-5, L5-S1 TLIF w. posterior instrumentation, L3-4 hemilaminectomy -Robot(Not Applicable) - Ellis Fernandez MD Physical Therapy Treatment Note M2 PT-IP Current Condition Start: 10/27/22 15:57 Freq: NEEDED Status: Active Protocol: Document 10/29/22 12:40 SP (Rec: 10/29/22 15:07 SP [id number]) Physical Therapy Current Condition Current Condition Evaluation Date 10/28/22 Treatment Diagnosis L4-5 L5-S1 spinal stenosis with radiculopathy s/p postero -lateral fusion Onset Date 10/27/22 M3 PT-IP Subjective Start: 10/27/22 15:57 Freq: NEEDED Status: Active Protocol: Document 10/29/22 12:40 SP (Rec: 10/29/22 15:07 SP [id number]) Subjective Physical Therapy Visit Type Type Treatment Note Visit Start Time 12:40 Visit Stop Time 12:57 Total Visit Minutes 17 Notes Initiated CGT with including don gait belt, physical assist required during TF and gait w/ FWW. Vitals: seated in chair BP 97/ 54 HR 85 Number of DIRECTOR ELECTRICAL ENGINEERING Visits 3 Physical Therapy Visit Comments Patient Comments Pt willing to mobilize with PT . Patient Goals Return home with to assist her when pain controlled and BP better. Therapy Pain Assessment Pain When Pain Assessed During Mobility Pain Present Pain Present Pain Reported Location L posterior thigh/knee Scale Used senstive to touch, moderate pain with mob Description With Movement Pain Behaviors Facial Grimacing,Wincing Pain Management Techniques Distraction,Modification of Treatment,Re-positioning Back Intensity 7 Scale Used Numeric (0 - 10) Description Spasm,With Movement Pain Behaviors Facial Grimacing,Wincing Pain Management Techniques Distraction,Modification of Treatment,Re-positioning, Timing of Activity with Medications M4 PT-IP Mobility and Gait Start: 10/27/22 15:57 Freq: NEEDED Status: Active Protocol: Document 10/29/22 12:40 SP (Rec: 10/29/22 15:07 SP [id number]) PT-Bed Mobility Assessment Rolling Type of Rolling Log Rolling,Roll to Left Level of Assist Contact Guard Assistance Sit to Supine Sit to Supine Moderate Assistance,1 Person Assistance,Bedrails PT-Transfer Assessment Sit to and From Stand Sit to and from Stand Moderate Assistance,Maximum Assistance,1 Person Assistance ,Use of Upper Extremities Equipment Transfer Assistive Device Gait Belt,Front Wheeled Walker Orthotic/Prosthetic Devices or Brace: No Transfers Transfer Destination Bed Transfer Technique ambulated with FWW Transfer Ability Level of Assist Minimal Assistance,1 Person Assistance,Use of Upper Extremities Comments Mobility Comments Pt continues to be lethargic/ heavy eyes/reports low energy/ tried to eat, BP 97/54 (still lower than reported baseline 110-115/70-80s reported). Scoot to EO chair heavy BUEs on chair arms donned gait belt to upper chest, STS Mod/Max A x1 cued wt shift over BLEs and quad facilitation into full stand w /FWW. Gait wFWW unsteady BLEs/ approx 30 ft to door and back R side bed. Cued back up fully , proper hand placement reach back slow sit Min A x1. Sit> R SL Mod A x1 for BLe into bed, CGA with cues for log roll maintain preccautions no twisting. Mod A center upper body in bed. Pillows under thighs support back neutral. Pt had call light and all needs in reach before left, bed alarmed. Pt would benefit from 1 more am tx and continue CGT with . Will continue to assess progress. Gait Assessment Gait Gait Assistance Required: Minimum Assistance,Moderate Assistance,1 Person Assist Distance (Feet) 30 Able to Maintain Weight Bearing Status Yes During Gait Assistive Devices Assistive Device Gait Belt,Front Wheeled Walker Orthotic/Prosthetic Devices or Brace: No Gait Deviations General Gait Pattern Antalgic,Decreased Stride Length,Decreased Feet Clearance Factors Limiting Gait Function Factors Limiting Gait Function Decreased Activity Tolerance, Decreased Strength,Limited Range of Motion,Pain,Poor Balance Comments Gait Comments cued posturing closer to FWW, increase foot clearance/stride , noted unsteady B knees but no LOB/buckling/moderate heavy BUEs on FWW. Stair Climbing Assessment Comments Stair Climbing Comments Has stairs but can use ramp to enter home. PT-Balance Assessment Sitting Balance and Reactions Static Sitting Balance Ability Fair Dynamic Sitting Balance Ability Fair Standing Balance and Reactions Static Standing Balance Ability Fair Dynamic Standing Balance Ability Fair Device Used FWW M5 PT-IP Objective Assessments Start: 10/27/22 15:57 Freq: NEEDED Status: Active Protocol: Document 10/28/22 10:04 [facility] (Rec: 10/28/22 10:22 AMH [id number]) Gross Range of Motion Upper Extremity ROM Assessment Within Functional Limits Lower Extremity ROM Assessment Within Functional Limits Strength Upper Extremity Strength Assessment Within Functional Limits Lower Extremity Strength Assessment Within Functional Limits M6 PT-IP Treatment Start: 10/27/22 15:57 Freq: NEEDED Status: Active Protocol: Document 10/29/22 12:40 SP (Rec: 10/29/22 15:07 SP [id number]) Physical Therapy Treatment Education Education Provided Precautions,Safety M7 PT-IP Assessment and Plan Start: 10/27/22 15:57 Freq: NEEDED Status: Active Protocol: Document 10/29/22 12:40 SP (Rec: 10/29/22 15:07 SP [id number]) PT Summary Assessment and Plan Potential Rehabilitation Potential Excellent Status of Condition at Evaluation Stable Summary Impairments Pain,Strength,Bed Mobility, Transfers,Gait,Activity Tolerance Progress Towards Goals Slow Progress due to Pain,Slow Progress due to Medical Issues,Slow Progress due to Activity Tolerance Assessment Summary BP continues to be lower than baseline, continued noted unsteady BLEs during WB advancement Min/Mod A w/FWW gait room 30 ft, Mod A bed mobility BLEs and trunk support. Pt would benefit from 1 more am acute PT tx, continue CGT. REcommending HHPT 22/03 vs SNF. DIRECTOR ELECTRICAL ENGINEERING encouraged mobiltiy with nursing to bathroom if safet BP and up to chair for dinner. Will continue to assess progress. Goals Bed Mobility Goal Independent Transfer Goal Standby Assistance Gait Goal Standby Assistance Gait Distance 50 feet Days to Meet Goals 5 Frequency of Treatment Frequency Of Treatment Twice a Day Treatment Plan Physical Therapy Treatment Plan Bed Mobility Training,Transfer Training,Gait Training, Therapeutic Exercise Other Recommendations and Next Treatment Check BP, CGT with 3/3 Focus 9am DIRECTOR ELECTRICAL ENGINEERING, bed mob, transfers w /FWW, gait further distance. Precautions Lumbar Precautions Log Roll,No Twisting,Limit Bending,Lifting Restriction of 10 lbs,Gait Belt above Incisional Area Other Precautions Good recall to precautions 3/3 , cues for maintaining no twisting during log roll. Recommendations To Nursing Amount of Assist Needed 1 Person Assist Discharge Recommendations PT Discharge Recommendations Home with 22/03 Assist Available,Home Health,SNF Rehab,Home vs SNF Equipment Needed for Home Before acquired FWW and Discharge toilet riser. Transportation Needs at Discharge Private Vehicle,Wheelchair/ Cabulance
--- NOTE | 2022-10-29 13:31 | CM.DPC ---
Addendum entered by CAMERON Barksdale 10/29/22 14:47: ADD: SW met bedside with pt and spouse and discussed d/c planning and needs. Pt and spouse confirm that they are agreeable with d/c to home and want HH when medically stable. They had reviewed the HH Choice list and no preference on HH. Spouse has also contacted [facility] to set up [facility] initially for when pt discharges home for about a week for additional support. SW made [facility] referral based on [facility] Calendar and faxed clinicals to review. Plan: SW to follow for plan of d/c to home with new [facility] referral and will need to fax F2F, HH orders, and d/c summary at discharge to [place]. CAMERON Barksdale Original Note: DCP HH Planning: Per Ortho PA, pt still having orthostatic issues which has limited her ability to work much with PT/OT and still with some nausea and pain and will attempt for discharge today but likely pt will not be able to d/c until tomorrow to be medically stable. SW spoke to TEACHER EDUCATION INSTRUCTOR and OT, and even though pt has not been able to participate much, they feel that with spouse assist she can likely d/c home with HH and make enough progress by tomorrow to safely d/c home. SW attempted to meet bedside with pt but she finally got to sleep and trying to feel better and spouse had left to go back to his local hotel room. SW attempted to call spouse and left msg to determine if they are comfortable with d/c plan of home and with HH and if they have a HH preference after receiving the HH Choice list yesterday for [place] ([facility] or [facility]). F2F completed. Plan: SW to follow for going bedside again a little later this afternoon to discuss home with HH with pt and see if she has a HH preference and then make initial referral. CAMERON Barksdale
[2022-10-29] MEDS: ROPINIROLE 1 MG TABLET 3 MG PO (17:59)
[2022-10-29] MEDS: HYDROCODONE/ACET 5/325 TABLET 1 TAB PO (19:43)
[2022-10-29] MEDS: diazePAM 5 MG TABLET PO (20:58)
[2022-10-29] MEDS: TRAMADOL 50 MG TABLET PO (20:58)
[2022-10-29] MEDS: SENNOSIDES 8.6 MG TABLET 17.2 MG PO (20:58)
[2022-10-29] MEDS: hydrOXYzine pamoate 25 MG CAPSULE PO (22:57)
[2022-10-29] MEDS: HYDROMORPHONE 0.5 MG INJ IV (23:00)
[2022-10-30] MEDS: ACETAMINOPHEN 325 MG TABLET 650 MG PO ×3 (01:19→17:16)
[2022-10-30] MEDS: TRAMADOL 50 MG TABLET PO ×6 (01:19→22:00)
[2022-10-30] MEDS: ONDANSETRON 4 MG/2 ML INJ IV ×2 (03:44→22:00)
[2022-10-30 04:15] VITALS: BP 137/79; PULSE 69; RESP 18; TEMP 36.3; O2SAT 93
[2022-10-30] MEDS: hydrOXYzine pamoate 25 MG CAPSULE PO ×4 (05:23→21:59)
--- NOTE | 2022-10-30 07:43 | PM.PNPO.1 ---
Subjective Subjective Date Patient Seen: 10/30/22 Time Patient Seen: 07:43 Interval history: Patient is complaining of moderate to severe low back pain as well as significant nausea and vomiting. She has dry heaves while I am in the room. We tried changing her pain medications to [place] 5 mg plus tramadol for breakthrough pain, however she required IV Dilaudid late last night. She is resumed Lovenox 40 mg 1 injection daily plus warfarin 10 mg yesterday, 7.5 mg scheduled today; then resume her normal schedule of 5 mg x 5 days a week, 7.5 mg x 2 days a week. Her INR yesterday was 1.2, and will be checked again this morning, per anticoagulation Clinic recommendations. Exam Vital Signs (past 8 hours): - 10/30/22 04:15 Temperature 97.3 F L Pulse Rate 69 Respiratory Rate 18 Blood Pressure 137/79 Pulse Oximetry 93 Oxygen Delivery Method Room Air Oxygen Flow Rate 0 Narrative Exam Narrative: Pleasant 66-year-old female resting in bed, with dry heaves. She is somewhat frail appearing. Lumbar dressing demonstrates right sided bloody discharge, no surrounding erythema, induration, or arian pus. Bilateral lower extremity: Motor functions are grossly intact, sensation is grossly intact to light touch, calves are soft and nontender to palpation. 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 DVT (deep venous thrombosis) Easy bruisability Graves' disease History of dumping syndrome Hypothyroidism Kidney disease Kidney donor (2002) Lower GI bleed (2016) Lupus Neuropathy Osteoarthritis Pericarditis Pleuritis Pulmonary embolism RLS (restless legs syndrome) Single kidney Spinal stenosis Thyroid cancer (2005) Surgical History History of hysterectomy (2001) History of total left hip replacement (2020) Hx of appendectomy (12/24/15) Hx of arthroscopy of right knee (2015) Hx of eye surgery (2010) Hx of hernia repair (2016) Hx of thyroidectomy (2006) Social History household members: spouse Smoking Status: Former smoker alcohol intake: current Assessment & Plan Post-op Postoperative Procedures: Procedures Operation Date: 10/27/22 07:45 Actual Procedure Side Surgeon p L4-5, L5-S1 TLIF w. posterior instrumentation, L3-4 hemilaminectomy -Robot Not Applicable Ellis Fernandez MD Postoperative day: 3 Postoperative status: marginal pain control Postoperative status narrative: -stable status post L4-5, L5-S1 TLIF with posterior instrumentation, L3-4 hemilaminectomy -history of Antiphospholipid antibody syndrome, expected to restart Lovenox bridge 48 hours postop + warfrin -orthostatic hypotension -postoperative nausea and vomiting Postoperative plan narrative: -mobilize with PT/OT. Weightbearing as tolerated with front wheel walker/cane. No bending, lifting, twisting x6 weeks. -Encouraged dangling her legs at the side of the bed for 5 minutes before standing, then standing for 2 minutes before walking to help with orthostatic hypotension. -continue multimodal pain management -continue Lovenox bridge and warfarin loading dose today. Continue with Lovenox 40 mg 1 injection subcu daily, discontinue once INR is greater than 2.0. Warfarin plan: 10 mg yesterday, 7.5 mg today, then resume normal schedule (5 mg daily x5 days per week, 7.5 mg x 2 days per week). -Anticoagulation clinic is requesting doses of Lovenox and warfarin as well as INR prior to discharge. -added Reglan for postop nausea and vomiting -disposition: Possibly home today if orthostatic hypotension symptoms and PONV resolve (with and home health) versus SNF -I will check in on her later today Quality VTE Deep Vein Thrombosis/Pulmonary Embolism Present on Admission: No
[2022-10-30 08:20] VITALS: BP 137/71; PULSE 74; RESP 18; TEMP 36.2; O2SAT 95
[2022-10-30 08:22] VITALS: BP 149/88
--- NOTE | 2022-10-30 09:03 | OT.IPNOTE ---
Checked on pt for caregiver training and pt is nauseous and in pain, to check on the pt later.
[2022-10-30] MEDS: METOCLOPRAMIDE 10 MG/2 ML INJ 5 MG IV ×2 (09:13→17:11)
[2022-10-30] MEDS: LEVOTHYROXINE 88 MCG TABLET PO (09:15)
[2022-10-30] MEDS: PANTOPRAZOLE DR 40 MG TABLET PO (09:15)
[2022-10-30] MEDS: DOCUSATE 100 MG CAPSULE PO ×2 (09:16→22:00)
[2022-10-30] MEDS: calcitrioL 0.25 MCG CAPSULE 0.5 MCG PO (09:16)
[2022-10-30] MEDS: ENOXAPARIN 40 MG/0.4 ML SYRINGE SUBCUT (09:16)
[2022-10-30] MEDS: WARFARIN 5 MG TABLET 7.5 MG PO (09:19)
[2022-10-30] MEDS: COLCHICINE 0.6 MG TABLET PO ×2 (09:19→22:00)
--- NOTE | 2022-10-30 09:43 | PT-IP ANOTE ---
Pt nausea this am upon arrival. Hold this am and will reassess further distance gait and continue CGT with in pm.
[2022-10-30] MEDS: HYDROCODONE/ACET 5/325 TABLET 1 TAB PO ×2 (10:16→17:15)
[2022-10-30 11:17] LABS: Add Manual Diff / Slide Review NO; Basophils Absolute Auto 100 /uL (0-100); Basophils Percent Auto 0.5 % (0-2); Eosinophils Absolute Auto 0 /uL (0-450); Eosinophils Percent Auto 0.2 % (2-4); Hematocrit 33.5 % (36-46); Hemoglobin 11.3 g/dL (12.0-16.0); Lymphocytes Absolute Auto 1400 /uL (1100-4500); Lymphocytes Percent Auto 12.7 % (25-40); Mean Corpuscular HGB Conc 33.8 % (30-36); Mean Corpuscular Hemoglobin 31.2 PG (26-34); Mean Corpuscular Volume 92.3 fL (80-100); Monocytes Absolute Auto 900 /uL (0-900); Monocytes Percent Auto 8.3 % (3-14); Neutrophils Absolute Auto 8700 /uL (1500-7000); Neutrophils Percent Auto 78.3 % (50-75); Platelet Count 165 X10^3/uL (150-400); Red Blood Cell Count 3.64 X10^6/uL (4.0-5.2); Red Cell Distribution Width 12.7 % (11.6-14.8); White Blood Cell Count 11.1 X10^3/uL (4.5-11.0)
[2022-10-30 11:31] LABS: INR 1.4 (0.9-1.3); Prothrombin Time 15.9 SECONDS (10.1-12.7)
[2022-10-30 12:21] VITALS: BP 98/61; PULSE 77; RESP 18; TEMP 35.9; O2SAT 95
--- NOTE | 2022-10-30 12:45 | OT.IP.TRT ---
Current Diagnoses Spondylolisthesis, lumbar region (10/27/22) Spinal stenosis, lumbar region with neurogenic claudication (10/27/22) Surgery Performed Operation Date: 10/27/22 07:45 Actual Procedures p L4-5, L5-S1 TLIF w. posterior instrumentation, L3-4 hemilaminectomy -Robot(Not Applicable) - Ellis Fernandez MD Occupational Therapy Treatment Note M2 OT-IP Current Condition Start: 10/29/22 12:32 Freq: Status: Active Protocol: Document 10/29/22 09:05 [facility] (Rec: 10/29/22 13:03 [facility] [id number]) Occupational Therapy Current Condition Current Condition Evaluation Date 10/29/22 Treatment Diagnosis S/p L4-5, L5-S1 TLIF with post inst, L3-4 hemilaminectomy Diagnosis Onset Date 10/27/22 Post Operative Precautions Lumbar Precautions Log Roll,No Twisting,Limit Bending,Lifting Restriction of 10 lbs,Gait Belt above Incisional Area M3 OT- IP Subjective and Pain Start: 10/29/22 12:32 Freq: Status: Active Protocol: Document 10/30/22 13:12 [facility] (Rec: 10/30/22 13:26 [facility] [id number]) OT- Subjective Occupational Therapy Visit Type Type Treatment Note Visit Start Time 12:45 Visit Stop Time 13:08 Total Visit Minutes 23 Occupational Therapy Visit Comments Patient Comments Pt wanting to use the bathroom , pt's present for caregiver training. Patient/Caregiver Goals To go home. OT Pain Assessment Pain When Pain Assessed During Mobility Pain Present Pain Present Pain Reported M4 OT- IP ADL's Start: 10/29/22 12:32 Freq: Status: Active Protocol: Document 10/30/22 13:12 [facility] (Rec: 10/30/22 13:26 [facility] [id number]) OT [id number] Comments OT Self-Feeding Comments Not at meal time. OT ADL-Grooming General Evaluation Grooming Ability Independent Areas Needing Assistance Retrieving/Set-up of Grooming Items Comments OT Grooming Comments Able to do while standing with FWW. OT ADL-Oral Care General Eval Oral Care Ability Independent Areas of Assistance Retrieving/Set-Up of Items Comments Oral Care Comments vc to hinge at her hips or spit into a cup to best follow her back precautions. OT ADL-Dressing Comments OT Dressing Comments Not performed OT ADL-Toileting General Evaluation Toileting Ability Standby Assistance Comments OT Toileting Comments Pt able to wipe while standing with FWW with SBA. OT ADL-Bathing Comments OT Bathing Comments Not performed. M5 OT- IP IADL's Start: 10/29/22 12:32 Freq: Status: Active Protocol: Document 10/29/22 09:05 [facility] (Rec: 10/29/22 13:03 [facility] [id number]) OT-Instrumental Activities of Daily Living Deficits IADL Deficits Identified Deficits Home Safety Awareness Awareness of Need for Assistance at Home Good Awareness Home Safety Comments Pt has a supportive to be able to assist. Pt's initially left the room when OT working with pt as his states he does not deal well with pain or blood. Able to have pt come back later and worked with [employer] for initiation of caregiver training needs. M6 OT- IP Functional Cognition Start: 10/29/22 12:32 Freq: Status: Active Protocol: Document 10/30/22 13:12 [facility] (Rec: 10/30/22 13:26 [facility] [id number]) Cognitive Factors Limiting Selfcare Function Cognitive Ability Level of Alertness Alert Patient Orientation Name,Place,Situation Attention Span Ability Capable of Focused Attention, Capable of Sustained Attention Ability to Follow Commands Able to Follow One Step Commands Cognitive Comments Cognitive Assessment Comments Pt more alert today and able to follow commands for ADL and mobility needs. Pt needing reminders for hand placement to come to stand and sitting needs. M7 OT- IP Mobility and Balance Start: 10/29/22 12:32 Freq: Status: Active Protocol: Document 10/30/22 13:12 [facility] (Rec: 10/30/22 13:26 [facility] [id number]) OT- Bed Mobility Assessment Supine to Sit Supine to Sit Assist Minimal Assistance OT-Transfer Assessment Sit to and From Stand Sit to and from Stand Minimal Assistance,Moderate Assistance Transfers Transfer Ability Minimal Assistance Technique Transfer Destination Bed,Chair,Toilet Transfer Technique Stand Step Pivot Devices Transfer Assistive Devices Gait Belt,Front Wheeled Walker Comments Mobility Comments Pt tends to pull up on the FWW to stand and pt's aware to hold onto the FWW to steady it when coming to stand, otherwise pt will need more assist to come to stand. Pt able to walk to the sink and around the room with CGA with FWW. OT- Balance Assessment Sitting Balance and Reactions Static Sitting Balance Ability Normal Dynamic Sitting Balance Ability Good Standing Balance and Reactions Static Standing Balance Ability Good Dynamic Standing Balance Ability Fair M8 OT- IP Objective Assessments Start: 10/29/22 12:32 Freq: Status: Active Protocol: Document 10/29/22 09:05 [facility] (Rec: 10/29/22 13:03 [facility] [id number]) OT-Muscle Tone Assessment Muscle Tone WNL Yes M9 OT- IP Assessment and Plan Start: 10/29/22 12:32 Freq: Status: Active Protocol: Document 10/30/22 13:12 [facility] (Rec: 10/30/22 13:26 [facility] [id number]) OT Summary Assessment and Plan Potential Rehabilitation Potential Good Analytic Complexity at Evaluation Low Summary OT Impairments Pain,Balance,Functional Mobility,Grooming,Dressing, Toileting,Bathing,Toilet Transfers,Shower Transfers, Activity Tolerance Progress Towards Goals Progressing Toward Goals,Slow Progress due to Medical Issues Assessment Summary Pt still not feeling well but able to do caregiver training with her . Pt's able to safely assist pt for bed mobility with use of FWW to the side so pt able to pull on to get to sidelying. Pt to go home when medically stable . Goals Grooming Goal Independent Dressing Goal Independent Toileting Goal Independent Bathing Goal Minimal Assistance Toilet Transfer Goal Independent Shower Transfer Goal Standby Assistance Patient/Caregiver Education Goal Caregiver Independent Assisting Patient Days to Meet Goals 14 Frequency of Treatment Frequency Of Treatment Once a Day Treatment Plan OT Treatment Plan ADL Training,Functional Mobility,Patient/Family Education,Discharge Planning Discharge Recommendations OT Discharge Recommendations Home with 24/7 Assist Available,Home Health Transportation Needs at Discharge Private Vehicle
[2022-10-30 13:11] LABS: Appearance Urine UA CLEAR; Bilirubin Urine UA NEGATIVE (NEGATIVE); Color Urine UA YELLOW; Glucose Urine UA NEGATIVE (Negative); Ketones Urine UA NEGATIVE (NEGATIVE); Leukocyte Esterase Urine UA NEGATIVE (NEGATIVE); Nitrite Urine UA POSITIVE (Negative); Occult Blood Urine UA TRACE-INTACT (Negative); Protein Urine UA NEGATIVE (Negative); Specific Gravity Urine UA <=1.005 (1.000-1.035); Urobilinogen Urine UA 0.2 E.U./dL (0.2)
[2022-10-30 13:19] LABS: pH Urine UA 6.5 (4.5-8.0)
[2022-10-30 13:29] LABS: Bacteria Urine Moderate (10-30); Culture Indicated Urine Specimen Cultured; RBC Urine 0-1/HPF (0-5/HPF); Squamous Epithelial Cell Urine 1-5 /HPF (0-5/HPF); WBC Urine None Seen (0-5/HPF)
--- NOTE | 2022-10-30 14:24 | PT.IPTN ---
Current Diagnoses Spondylolisthesis, lumbar region (10/27/22) Spinal stenosis, lumbar region with neurogenic claudication (10/27/22) Surgery Performed Operation Date: 10/27/22 07:45 Actual Procedures p L4-5, L5-S1 TLIF w. posterior instrumentation, L3-4 hemilaminectomy -Robot(Not Applicable) - Ellis Fernandez MD Physical Therapy Treatment Note M2 PT-IP Current Condition Start: 10/27/22 15:57 Freq: NEEDED Status: Active Protocol: Document 10/29/22 12:40 [facility] (Rec: 10/29/22 15:07 [facility] [id number]) Physical Therapy Current Condition Current Condition Evaluation Date 10/28/22 Treatment Diagnosis L4-5 L5-S1 spinal stenosis with radiculopathy s/p postero -lateral fusion Onset Date 10/27/22 M3 PT-IP Subjective Start: 10/27/22 15:57 Freq: NEEDED Status: Active Protocol: Document 10/30/22 14:01 [facility] (Rec: 10/30/22 14:24 [facility] [id number]) Subjective Physical Therapy Visit Type Type Treatment Note Visit Start Time 13:38 Visit Stop Time 14:01 Total Visit Minutes 23 Notes Continued CGT with reviewing am plus bed mobility Physical Therapy Visit Comments Patient Comments Pt willing to mobilize with PT . Patient Goals Return home with to assist her when UTI resolved Therapy Pain Assessment Pain When Pain Assessed During Mobility Pain Present Pain Present Pain Reported Location Back Intensity 4 Scale Used Numeric (0 - 10) Description Spasm,With Movement Pain Behaviors Facial Grimacing,Wincing Pain Management Techniques Distraction,Modification of Treatment,Re-positioning, Timing of Activity with Medications M4 PT-IP Mobility and Gait Start: 10/27/22 15:57 Freq: NEEDED Status: Active Protocol: Document 10/30/22 14:01 [facility] (Rec: 10/30/22 14:24 [facility] [id number]) PT-Bed Mobility Assessment Rolling Type of Rolling Log Rolling,Roll to Left Level of Assist Contact Guard Assistance Sit to Supine Sit to Supine Contact Guard Assistance,1 Person Assistance Scooting Scooting Up and Down in Bed Standby Assistance PT-Transfer Assessment Sit to and From Stand Sit to and from Stand Contact Guard Assistance, Minimal Assistance,1 Person Assistance,Use of Upper Extremities Equipment Transfer Assistive Device Gait Belt,Front Wheeled Walker Orthotic/Prosthetic Devices or Brace: No Transfers Transfer Destination Bed Transfer Technique ambulated with FWW Transfer Ability Level of Assist Minimal Assistance,1 Person Assistance,Use of Upper Extremities Comments Mobility Comments Pt more awake this afternoon. Pt being assisted by for CGT. Transfers required cueing for hip hinge and hand placement to maximize sit> stand ability. Pt ambulated around room ~40' then requested to return to bed. SBA with stand>sit>SL> logroll with SBA to assist LEs onto bed. Pt able to position self in bed. Gait Assessment Gait Gait Assistance Required: Contact Guard Assist,1 Person Assist Distance (Feet) 40 Able to Maintain Weight Bearing Status Yes During Gait Assistive Devices Assistive Device Gait Belt,Front Wheeled Walker Orthotic/Prosthetic Devices or Brace: No Gait Deviations General Gait Pattern Antalgic,Decreased Stride Length,Decreased Feet Clearance Factors Limiting Gait Function Factors Limiting Gait Function Decreased Activity Tolerance, Decreased Strength,Limited Range of Motion,Pain,Poor Balance Comments Gait Comments CGA with ambulation around the room but appeared pt SBA. Low foot clearance and elevated shoulders pointed out to pt and husbned which able to correct. PT-Balance Assessment Sitting Balance and Reactions Static Sitting Balance Ability Fair Dynamic Sitting Balance Ability Fair Standing Balance and Reactions Static Standing Balance Ability Fair Dynamic Standing Balance Ability Fair Device Used FWW M5 PT-IP Objective Assessments Start: 10/27/22 15:57 Freq: NEEDED Status: Active Protocol: Document 10/28/22 10:04 [facility] (Rec: 10/28/22 10:22 [facility] [id number]) Gross Range of Motion Upper Extremity ROM Assessment Within Functional Limits Lower Extremity ROM Assessment Within Functional Limits Strength Upper Extremity Strength Assessment Within Functional Limits Lower Extremity Strength Assessment Within Functional Limits M6 PT-IP Treatment Start: 10/27/22 15:57 Freq: NEEDED Status: Active Protocol: Document 10/30/22 14:01 [facility] (Rec: 10/30/22 14:24 [facility] [id number]) Physical Therapy Treatment Exercises Exercises Gluteal Sets,Quad Sets Education Education Provided Precautions,Safety M7 PT-IP Assessment and Plan Start: 10/27/22 15:57 Freq: NEEDED Status: Active Protocol: Document 10/30/22 14:01 [facility] (Rec: 10/30/22 14:24 [facility] [id number]) PT Summary Assessment and Plan Potential Rehabilitation Potential Excellent Status of Condition at Evaluation Stable Summary Impairments Pain,Strength,Bed Mobility, Transfers,Gait,Activity Tolerance Progress Towards Goals Slow Progress due to Pain,Slow Progress due to Medical Issues,Slow Progress due to Activity Tolerance Assessment Summary Pt without nausea this session and feeling slightly less pain. Reported pain decreased with standing and ambulation. Na assist needed with bed mobility but CGA-Carlos with transfers. Pts is very attentive and has assisted pt with other medical issues. She is safe to DC home with 24/7 assist from when medically stable. Goals Bed Mobility Goal Independent Transfer Goal Standby Assistance Gait Goal Standby Assistance Gait Distance 50 feet Days to Meet Goals 5 Frequency of Treatment Frequency Of Treatment Twice a Day Treatment Plan Physical Therapy Treatment Plan Bed Mobility Training,Transfer Training,Gait Training, Therapeutic Exercise Precautions Lumbar Precautions Log Roll,No Twisting,Limit Bending,Lifting Restriction of 10 lbs,Gait Belt above Incisional Area Other Precautions Good recall to precautions 3/3 , cues for maintaining no twisting during log roll. Use hip hinging with transfers Recommendations To Nursing Amount of Assist Needed Standby Assistance Discharge Recommendations PT Discharge Recommendations Home with 24/7 Assist Available,Home Health,SNF Rehab,Home vs SNF Equipment Needed for Home Before acquired FWW and Discharge toilet riser. Transportation Needs at Discharge Private Vehicle,Wheelchair/ Cabulance
--- NOTE | 2022-10-30 14:52 | CM.DPC ---
DCP Home with HH Per Ortho PA, pt with some ongoing nausea/dry heaves and potential for d/c home today vs tomorrow pending progress. Per RN, sent UA and pt's urine positive for UTI and to determine likely oral abx. Per PT/OT, pt able to participate more today and completed CG training with spouse bedside and pt safe for d/c home with HH when medically stable. Ortho PA to round later today to determine if pt stable for d/c today vs tomorrow. SW faxed F2F and HH orders to [facility] with update of possible d/c tonight vs tomorrow. Plan: SW to follow for faxing d/c summary to [facility] when available at discharge for plan of home with spouse and [facility] and [facility] for the first week after d/c. Radha Xiong MSW
[2022-10-30] MEDS: ROPINIROLE 1 MG TABLET 3 MG PO (16:01)
[2022-10-30 16:51] VITALS: BP 131/63; PULSE 72; RESP 18; TEMP 36.8; O2SAT 94
[2022-10-30] MEDS: cefTRIAXone 1,000 MG in SODIUM CHLORIDE 0.9% 100 ML 200 MG IV (17:46)
[2022-10-30 20:11] VITALS: BP 98/58; PULSE 69; RESP 17; TEMP 36.1; O2SAT 94
[2022-10-30] MEDS: SENNOSIDES 8.6 MG TABLET 17.2 MG PO (21:59)
[2022-10-30] MEDS: HYDROCODONE/ACET 5/325 TABLET 2 TAB PO (21:59)
[2022-10-30] MEDS: diazePAM 5 MG TABLET PO (22:00)
[2022-10-30] MEDS: SODIUM CHLORIDE 0.9% FLUSH 10 ML IV (22:11)
[2022-10-31] MEDS: hydrOXYzine pamoate 25 MG CAPSULE PO ×2 (03:16→08:49)
[2022-10-31] MEDS: HYDROCODONE/ACET 5/325 TABLET 2 TAB PO (03:16)
[2022-10-31] MEDS: METOCLOPRAMIDE 10 MG/2 ML INJ 5 MG IV (03:16)
[2022-10-31 03:18] VITALS: BP 118/69; PULSE 65; RESP 18; TEMP 36.1; O2SAT 96
[2022-10-31] MEDS: TRAMADOL 50 MG TABLET PO ×3 (06:28→12:08)
[2022-10-31] MEDS: ONDANSETRON 4 MG/2 ML INJ IV (06:28)
[2022-10-31] MEDS: COLCHICINE 0.6 MG TABLET PO (08:49)
[2022-10-31] MEDS: calcitrioL 0.25 MCG CAPSULE 0.5 MCG PO (08:49)
[2022-10-31] MEDS: HYDROCODONE/ACET 5/325 TABLET 1 TAB PO ×2 (08:49→12:25)
[2022-10-31] MEDS: ENOXAPARIN 40 MG/0.4 ML SYRINGE SUBCUT (08:49)
[2022-10-31 08:50] LABS: Alanine Aminotransferase 18 IU/L (<35); Albumin 3.1 g/dL (3.5-5.0); Albumin Globulin Ratio 1.3 (1.0-2.8); Alkaline Phosphatase 61 U/L (38-126); Aspartate Aminotransferase 21 IU/L (14-36); Bilirubin Total 0.5 mg/dL (0.2-1.3); Blood Urea Nitrogen 16 mg/dL (7-17); Calcium 7.5 mg/dL (8.4-10.2); Carbon Dioxide 33 mmol/L (22-32); Chloride 102 mmol/L (98-107); Estimated Glomerular Filt Rate > 60 mL/min (>60); Globulin 2.4 g/dL (1.7-4.1); Glucose 88 mg/dL (80-110); HEMOLYSIS < 15 (0-50); Potassium 3.5 mmol/L (3.4-5.1); Sodium 139 mmol/L (137-145); Total Protein 5.5 g/dL (6.3-8.2)
[2022-10-31] MEDS: LEVOTHYROXINE 88 MCG TABLET PO (08:50)
[2022-10-31] MEDS: WARFARIN 5 MG TABLET PO ×2 (08:50→08:55)
[2022-10-31] MEDS: PANTOPRAZOLE DR 40 MG TABLET PO (08:50)
[2022-10-31] MEDS: DOCUSATE 100 MG CAPSULE PO (08:50)
[2022-10-31] MEDS: SODIUM CHLORIDE 0.9% FLUSH 10 ML IV (08:51)
[2022-10-31 09:43] VITALS: BP 99/61; PULSE 85; RESP 16; TEMP 36.4; O2SAT 94
[2022-10-31] MEDS: POTASSIUM CHLORIDE 20 MEQ TAB 40 MEQ PO (11:24)
--- NOTE | 2022-10-31 11:38 | P.DS_ITS ---
History of Present Illness History of Present Illness Date Patient Seen: 10/31/22 Time Patient Seen: 10:30 Chief complaint: TLIF Narrative: Patient is resting comfortably in bed this morning with her at bedside. She states she has done well with physical therapy and would like to go home. She has had difficulty with nausea and vomiting since surgery, but states it is now well controlled with medication. Denies fever and chills. Denies pain with urination, frequency, or urgency. Discharge Providers Provider Date of admission: 10/27/22 06:11 Discharge Date: 10/31/22 Consults: 10/27/22 13:37 Consult to Occupational Therapy Evaluate & Treat Comment: Physician Instructions: Evaluate and treat Consult to Physical Therapy Evaluate & Treat Comment: Physician Instructions: Evaluate and Treat 10/30/22 14:41 Consult to Home Health Routine Comment: TLIF, pain issues, orthostatics Reason For Exam: Set up RN/PT/OT/NEUROPSYCHIATRIC AIDE for d/c to home Discharge provider: Chelsea Yun PA-C Summary Hospital Course Discharge Diagnosis: Status post TLIF Hospital Course: Operative Date/Time/Diagnoses Date of procedure: 10/27/22 Time of procedure: 07:40 Pre-op diagnosis: 1. L4-5, L5-S1 spinal stenosis with radiculopathy 2. L4-5, L5-S1 spondylosis with radiculopathy Post-op diagnosis: same Procedure & Clinicians Procedure: 1. L4-5, L5-S1 Postero-lateral and posterior interbody fusion 2. L4-5, L5-S1 interbody cage placement. 3. L4-5, L5-S1 decompressive laminectomy with bilateral facetecomies 4. L4-5, L5-S1 Posterior segmental instrumentation 5. Basom of bone marrow from iliac crest 6. Utilization of microsurgical technique and operating microscope 7. Utilization of robotic assisted navigation Same procedure as scheduled: Yes Indications: Patient has been having chronic back pain and worsening lumbar radiculopathy. Patient failed multiple conservative management with worsening pain weakness and numbness in her lower extremity.? Patient has been having difficulty performing activity of daily living.? After discussing risks benefits of treatment options, patient elected proceed with surgery. Surgeon: Ellis Fernandez Pest Locator: Chelsea Yun Click Yes if Unassisted: No Anesthesia Type: General Operative Notes Closure Type: primary Specimen(s): none sent Prosthetic devices, grafts, tissues, transplants, or devices: Globus CREO MIS screws, Rise cages Applied: catheter Estimated Blood Loss (mL): 100 Blood products transfused: none Status at Discharge Cognitive/behavioral status at discharge: oriented Functional status at discharge: uses cane/walker Overall status at discharge: patient is progressing back to baseline Exam Vital Signs (past 8 hours): - 10/31/22 09:43 Temperature 97.6 F Pulse Rate 85 Respiratory Rate 16 Blood Pressure 99/61 Pulse Oximetry 94 Oxygen Flow Rate 0 Oxygen Delivery Method Room Air Oxygen Flow Rate 0 Narrative Exam Narrative: Awake, alert, and oriented. Intraoperative dressing intact with moderate serosanguineous discharge. Strength and sensation intact to bilateral lower extremities. Bilateral calf soft, compressible, nontender with no palpable cords or masses. Objective Labs 10/30/22 10:32 10/31/22 08:25 Labs: Laboratory Results - last 24 hr 10/30/22 10/31/22 12:55 08:25 Sodium 139 Potassium 3.5 Chloride 102 Carbon Dioxide 33 H BUN 16 Creatinine 0.84 Estimated GFR > 60 BUN/Creatinine Ratio 19.0 Glucose 88 Calcium 7.5 L Total Bilirubin 0.5 AST 21 ALT 18 Alkaline Phosphatase 61 Total Protein 5.5 L Albumin 3.1 L Globulin 2.4 Albumin/Globulin Ratio 1.3 Urine Color Yellow Urine Appearance Clear Urine pH 6.5 Ur Specific [place] <=1.005 Urine Protein Negative Urine Glucose (UA) Negative Urine Ketones Negative Urine Occult Blood Trace-intact Urine Nitrate Positive H Urine Bilirubin Negative Urine Urobilinogen 0.2 Ur Leukocyte Esterase Negative Urine RBC 0-1/hpf Urine WBC None seen Ur Squamous Epith Cells 1-5 /hpf Urine Bacteria Moderate (10-30) H Ur Culture Indicated? 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 DVT (deep venous thrombosis) Easy bruisability Graves' disease History of dumping syndrome Hypothyroidism Kidney disease Kidney donor (2002) Lower GI bleed (2017) Lupus Neuropathy Osteoarthritis Pericarditis Pleuritis Pulmonary embolism RLS (restless legs syndrome) Single kidney Spinal stenosis Thyroid cancer (2005) Surgical History History of hysterectomy (2001) History of total left hip replacement (2020) Hx of appendectomy (12/24/15) Hx of arthroscopy of right knee (2015) Hx of eye surgery (2010) Hx of hernia repair (2016) Hx of thyroidectomy (2005) Social History household members: spouse Smoking Status: Former smoker alcohol intake: current Discharge Assessment & Plan Assessment and Plan Assessment: Patient is progressing as expected after spine surgery. She is struggled with postoperative nausea and vomiting that is now well controlled with medication. Plan of Treatment: Multimodal pain management planned with medications sent to pharmacy. Plan to discharge home with assistance from . She will follow up with Orthopedics 2 weeks after surgery. Discharge Plan Discharge Plan Patient Disposition: Home Discharge orders & Medications Prescriptions: New hydrocodone-acetaminophen 5-325 mg Tablet 1 tab PO Q4-6H PRN (Reason: Pain, Moderate (4-6)) Qty: 40 0RF tramadol 50 mg Tablet 50 mg PO Q4HR Qty: 40 0RF metoclopramide HCl 5 mg tablet 5 mg PO Q6H Qty: 40 0RF Rx Instructions: administer 30 minutes before meals hydroxyzine pamoate 25 mg Capsule 25 mg PO Q4HR PRN (Reason: Nausea And Vomiting) Qty: 40 0RF acetaminophen 325 mg Tablet 650 mg PO Q6HR Qty: 120 0RF ondansetron 4 mg tablet,disintegrating 4 mg PO Q8H Qty: 14 0RF Continued ropinirole 3 mg Tablet 3 mg PO QPM levothyroxine 88 mcg Tablet 88 mcg PO DAILY pantoprazole 40 mg Tablet,Delayed Release (Dr/Ec) 40 mg PO DAILY calcitriol 0.5 mcg Capsule 0.5 mcg PO DAILY warfarin 5 mg Tablet 5 mg PO SEEINSTR Patient Comments: 5mg q 5 days/7.5mg rest diazepam 5 mg Tablet 5 mg PO BEDTIME enoxaparin [Lovenox] 40 mg/0.4 mL Syringe 40 mg SUBCUT DAILY colchicine 0.6 mg Capsule 0.6 mg PO BID Discontinued acetaminophen 500 mg Tablet 1,000 mg PO TID oxycodone-acetaminophen 5-325 mg Tablet 1 tab PO TID Follow up/Referrals: Ellis Fernandez MD [Physician] - As previously scheduled Diet/Activity/Treatments Diet: Diet as Tolerated Activity: No deep bending, twisting, lifting over 10 lb. Other treatments: Please follow your anticoagulation instructions: -Daily Lovenox 40mg 1 injection subcutaneously daily. Stop when INR is greater than 2.0 -continue with normal Coumadin dose, as directed by anticoagulation clinic Dressing/Wound care: -Keep dressing in place until postoperative follow-up office visit. -Okay to shower. Keep wound out of direct water stream. Can use PressNSeal plastic wrap to protect from shower stream. No soaking or submerging until all the scabs fall off (approximately 6 weeks). -Please call the office if dressing becomes wet, soiled, or saturated. Activities: -Limit bending, lifting, twisting x6 weeks. No deep bending (more than 90 degrees) or twisting at the waist. No lifting > 20 pounds. -Walk frequently. -Weight-bearing as tolerated. Use front wheeled walker, and progress to cane when safe. -Continue with home exercises as directed by your physical therapist. -Ice your incision as needed for pain/inflammation/swelling. Protect your skin with a folded pillowcase. -Incentive Spirometer (breathing device from hospital): 5-10xs every hour while awake for the first 1-2 weeks. Follow-up: -Follow-up with your surgeon or PA in the office in 10-14 days after surgery. -Follow-up with your surgeon 6 weeks postoperatively. Call the office if you have chest pain, shortness of breath, significant swelling that will not resolve with elevating, fever over 101?, significantly worsening pain, or are concerned you might need to go to the Emergency Room. [facility] Orthopedics: [phone] Skin/Wound/Dressing Care Report to your healthcare provider any signs of infection, such as:: chills, fever, night sweats, increased pain, unusual drainage and unusual redness Dressing: Keep dressing clean, dry, and intact until 2 week follow up with Orthopedics. If dressing becomes wet please call our office for dressing change. Visit Report/Discharge Packet Instructions: DI for Transforaminal Lumbar Interbody Fusion Stand Alone Forms: Patient Portal/API, Stroke Signs & Symptoms, Surgery Discharge Quality VTE Deep Vein Thrombosis/Pulmonary Embolism Present on Admission: No
--- NOTE | 2022-10-31 13:02 | PC.NURSE ---
Day shift: Paperwork signed and all questions answered. Dressig changed prior to d/c. Op-sites well approximated and have no s/s of infection. Pt's Spouse in room for d/c teachings. Her CMS remains intact with PPP. Able to eat lunch today as well. scripts sent electronic to Pt's pharmcay. Pt has all personal belongings. Left unit via WC at approx 1300. Taken to car by KHALIF Bailey.
--- NOTE | 2022-10-31 16:11 | CM.DPC ---
DCP: Called [facility] and spoke to Mckenzie. Let her know that pt discharged today and that this CM sent over Discharge Summary, signed, Order, and Face to face via fax. Ida Melchor RN, Program Mgr
== END 2022-10-31 13:06 | disposition home health service (06) | DRG 454 ==
PROVIDERS: Physician Assistant; Admitting Provider Orthopaedic Surgery Orthopaedic Surgery of the Spine; Referring Provider Orthopaedic Surgery Orthopaedic Surgery of the Spine; Visit Provider Orthopaedic Surgery Orthopaedic Surgery of the Spine
PROC: 0SG00AJ Fusion of Lumbar Vertebral Joint with Interbody Fusion Device, Posterior Approach, Anterior Column, Open Approach (ICD-10-PCS; principal; 2022-10-27 07:45)
DX: M48.061 Spinal stenosis, lumbar region without neurogenic claudication (principal); D68.61 Antiphospholipid syndrome; N39.0 Urinary tract infection, site not specified; M43.16 Spondylolisthesis, lumbar region; M48.07 Spinal stenosis, lumbosacral region; M47.26 Other spondylosis with radiculopathy, lumbar region; M47.27 Other spondylosis with radiculopathy, lumbosacral region; R11.2 Nausea with vomiting, unspecified; I95.1 Orthostatic hypotension; G25.81 Restless legs syndrome; E03.9 Hypothyroidism, unspecified; Z79.01 Long term (current) use of anticoagulants; Z20.822 Contact with and (suspected) exposure to COVID-19; Z87.891 Personal history of nicotine dependence
CPT/HCPCS: 36415; 72100; 76000; 80053; 81001; 85014; 85018; 85025; 85610; 87077; 87086; 87186; 87635; 97116; 97161; 97165; 97530; 97535; C9803; C1831; C9290; J0330; J0690; J0696; J1100; J1170; J1650; J2405; J2704; J2765; J3010

== ENCOUNTER 2025-05-17 07:16 | Day surgery (SDC) | payer OTHER, SELFPAY ==
[2022-10-27 13:36] VITALS: BMI 28.2
--- NOTE | 2025-05-07 08:55 | PM.GYNHP.1 ---
History of Present Illness History of Present Illness Narrative: Nina Orosco is a 69 year old female , admitted for surgery Date of procedure:?? may 17, 2025 Preoperative diagnosis:? Stage II recurrent prolapse, vaginal vault, cystocele Stress incontinence Planned Procedure:?? Robotic laparoscopic sacral colpopexy Mid urethral sling Cystoscopy Prior left nephrectomy so only has right kidney and right ureter remaining Prior upper midline scar for the nephrectomy, then developed a hernia, has hernia mesh in place. Might need to make initial scope insertion on left or right side History of DVT and PE, antiphospholipid syndrome, anticoagulated, currently on a heparin bridge, we will restart the heparin postop day 1 evening as well as Coumadin We will plan to keep overnight. If she is feeling well that evening she can go home. Lives in [place] Recent medical and cardiac clearance obtained. Recent normal echocardiogram. Postop Meds Tylenol 1000 mg, ?3 times a day? Motrin 400 mg ? 3 times a day Oycodone 5 mg,? take 1 pill every 4-6 hr as needed, # 15? Colace,? 1 pill BID, for constipation CC: Recurrent vaginal prolapse HPI: 69-year-old female who presents for evaluation of above complaint.?? She reports onset of symptoms years ago.?? She considers this a? Moderate? problem. She has 3 issues 1. Pelvic organ prolapse She has pelvic organ prolapse that she had treated with a vaginal surgery repair on October 06, 2024, in [place], Dr. Franklin. The surgery failed 3 months later. She presents with recurrence of her prolapse and desires repeat surgery she has a bulge that she feels and can see. She had a prior hysterectomy in 2001. She also has only 1 kidney remaining, on the right side. Donated the other kidney. She has prolapse symptoms of bulge, heaviness, pressure, strain for bowel movement, incomplete bladder emptying. Exam below demonstrates stage 2 prolapse with cystocele at +1 and vaginal vault penitentiary down. Based on her exam, I do not feel that a repeat vaginal surgery would be successful. They cystocele looks like it will continue to recur. Her best option is with robotic laparoscopic sacral colpopexy. She wants to remain sexually active so is not a candidate for colpocleisis 2. Stress incontinence She has stress incontinence. Was not treated at the prior surgery. She reports she leaks 2-3 times per day, but limits her activities. She would leak more if she was more active. She leaks when cough, sneeze, laugh, exercise. She varies from using no pads to mini pads to regular pads depending on her activity level. She would like to have surgery for the stress incontinence at the time of the vaginal prolapse repair 3. Overactive bladder She has overactive bladder that is being treated currently with oxybutynin 5 mg twice a day. It is helpful to her symptoms. But it causes her significant dry mouth. We discussed switching her to long-acting oxybutynin. She would like to try this. While on medication, her symptoms have improved. She voids every 4 hours in the day and 0 times at night. Now has minimal leakage of urine with urgency symptoms when she has to void. So the medication is helpful. 4. Anticoagulated Uses anticoagulants,, for antiphospholipid syndrome, When she has surgery she uses a heparin bridge. We will coordinate with her internal medicine doctor to have them order her a Lovenox heparin bridge as she weans off of the Coumadin prior to surgery and then as she resumes her Coumadin postoperatively as well. prior hyst -yes Pelvic Floor Review of Systems: (HPI) Stress Urinary Incontinence symptoms (LUZ ELENA): 2-3 times per week, worse with increasing activities Triggers include: Cough, sneeze, exercise, limits activities to avoid leaking. Also leaks with sex ? Urge Incontinence symptoms (Urge UI): Was a problem before the oxybutynin, now has much less urinary urgency leakage Triggers include: Full bladder with urge ? Pads: She wears 0-2 pads per day, depends on activities Overactive Bladder symptoms (OAB):? ? Frequency:?? Every 4 Nocturia: 0, note, these day and night frequency symptoms are while she is taking the oxybutynin Urgency:?? Mild Prior incontinence treatment includes:? Medical:? Yes Surgical:? No? Kegels:?? Yes Physical therapy:?No? Pessary:?No? Diet / Fluids: Fluid restriction:? No Excessive fluids:?No Pain symptoms:? Painful bladder:???No Dysuria:??? No Dyspareunia:? Yes Dysmenorrhea:? No Urinary Risk Factors UTI?s, recurrent:? Yes Hematuria:? No Kidney Stones:?No? Tobacco use:? No Pelvic Organ Prolapse (POP) symptoms:?? Bulge:?Yes Pressure and /or? Heaviness:?Yes Splint for defecation or voiding:???No Voiding dysfunction: Abnormal stream:? No Strain to void:? No Incomplete emptying:?No Voiding difficulty:? No Retention:??? No Bowel Function: Constipation:?No Strain to defecate:?Yes Fiber:?Yes Laxatives:?Yes Fecal Incontinence:? Liquid stool:? No Solid stool:?No?? Sexual function Sexually active: Yes Incontinence with sex: Yes ? General Review of Systems: Constitutional, CV, Endo, Musc-skel, Eyes, Cancer, Skin, Breast, GI, Heme/Lymph, Psych, Urinary, Neuro, Clinical Research Manager, Resp, Sexual:??? Pertinent positives listed above in HPI All others reviewed and negative. All reviewed on patient questionnaire.? . . 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 Easy bruisability Spinal stenosis Graves' disease Hypothyroidism Single kidney History of dumping syndrome Neuropathy RLS (restless legs syndrome) Lower GI bleed (2016) Osteoarthritis Thyroid cancer (2005) Kidney donor (2002) Kidney disease Clostridium difficile carrier Colon cancer COVID-19 virus infection (04/2022) Pleuritis Lupus Pulmonary embolism DVT (deep venous thrombosis) Antiphospholipid antibody syndrome Pericarditis Surgical History History of total left hip replacement (2020) Hx of arthroscopy of right knee (2015) Hx of thyroidectomy (2005) History of hysterectomy (2001) Hx of hernia repair (2016) Hx of appendectomy (12/24/15) Hx of eye surgery (2010) Allergies adhesive Allergy (Severe, Verified 05/07/25 08:09) It takes my skin off - Tegaderm is okgabapentin Adverse Reaction (Severe, Verified 05/07/25 08:09) Excessive bruising, APS flarehydroxychloroquine Adverse Reaction (Severe, Verified 05/07/25 08:09) Night Terrorsnortriptyline Adverse Reaction (Severe, Verified 05/07/25 08:09) Excessive bruising, APS flarepregabalin (From Lyrica) Adverse Reaction (Severe, Verified 05/07/25 08:09) Seizures during sleep Medications calcitriol 0.5 mcg capsule 0.5 mcg PO DAILY 10/20/22 [History Confirmed 05/07/25] colchicine 0.6 mg capsule 0.6 mg PO BID Chronic pericarditis 10/20/22 [History Confirmed 05/07/25] diazepam 5 mg tablet 5 mg PO BEDTIME 10/20/22 [History Confirmed 05/07/25] enoxaparin 40 mg/0.4 mL subcutaneous syringe (Lovenox) 40 mg SUBCUT DAILY 10/20/22 [History Confirmed 05/07/25] levothyroxine 88 mcg tablet 88 mcg PO DAILY 10/20/22 [History Confirmed 05/07/25] pantoprazole 40 mg tablet,delayed release 40 mg PO DAILY 10/20/22 [History Confirmed 05/07/25] ropinirole 3 mg tablet 3 mg PO QPM RLS 10/20/22 [History Confirmed 05/07/25] warfarin 5 mg tablet 5 mg PO SEEINSTR 10/20/22 [History Confirmed 05/07/25] acetaminophen 325 mg tablet 650 mg (2 x 325 mg) PO Q6HR #120 tabs 10/31/22 [Rx Confirmed 05/07/25] hydrocodone 5 mg-acetaminophen 325 mg tablet 1 tab PO Q4-6H PRN Pain, Moderate (4-6) #40 tabs 10/31/22 [Rx Confirmed 05/07/25] hydroxyzine pamoate 25 mg capsule 25 mg PO Q4HR PRN Nausea And Vomiting #40 caps 10/31/22 [Rx Confirmed 05/07/25] metoclopramide HCl 5 mg tablet 5 mg PO Q6H #40 tabs 10/31/22 [Rx Confirmed 05/07/25] ondansetron 4 mg disintegrating tablet 4 mg PO Q8H #14 tabs 10/31/22 [Rx Confirmed 05/07/25] tramadol 50 mg tablet 50 mg PO Q4HR #40 tabs 10/31/22 [Rx Confirmed 05/07/25] oxybutynin chloride 10 mg tablet,extended release 24 hr 10 mg PO DAILY #90 tabs 04/04/25 [Rx Confirmed 05/07/25] ibuprofen 400 mg tablet 400 mg PO TID postop pain #30 tabs 05/07/25 [Rx Confirmed 05/07/25] oxycodone 5 mg tablet 5 mg PO Q8H PRN postop pain #15 tabs 05/07/25 [Rx Confirmed 05/07/25] Social History household members: spouse Tobacco & Substance Use Smoking Status: Former smoker (10 years smoker 1/2 pack per day quit 1984) alcohol intake: current Exam Height 5 ft 6 in Weight 175 lb BMI 28.2 BP 110/65 Blood Pressure Location Rt radial Position Sitting Pulse 67 Pulse Source Monitor Pulse Oximetry (%) 94 Oxygen Delivery Method room air General: healthy, alert, coherent, no acute distress, cooperative, nontoxic Pulmonary: normal breathing, no distress Abdomen: soft, no mass, non-distended, no hernia, non-tender Skin: Scars on Abd: Several, for multiple surgeries ,Low-transverse for hysterectomy, supraumbilical with mesh for hernia, scope for gallbladder, also nephrectomy Vulva: Normal labia majora, labia minora, introitus, and clitoris, non-tender Urethra meatus: normal, no discharge Perineum: Normal, non-tender Urethra: No mass, non-tender Bladder: no mass, non-tender Vagina: No lesions, no discharge, my atrophy, non-tender Prolapse stage II, cystocele, vaginal vault Levators: Non-tender, 3/ 5 kegel squeeze Hysterectomy Bimanual: no mass, no adnexal mass, non-tender Anus: No lesion, non-tender, no hemorrhoid Empty Cough Stress test: Yes PVR: Not done today, but at prior visit, was 30 cc mL by catheter Urethral angle hypermobile: Yes POP-Q Exam: Aa: 0 Ba: +1 Ap: -1.5 Bp: -1.5 C: -4 D: Not applicable TVL: Minus a GH: 3 PB: 3.5 Introitus size: 2 fingerbreadths Cystocele stage: Stage II Rectocele stage: Stage I Uterine/Vault Prolapse Stage: Stage 1-2 Assessment & Plan (1) Cystocele, midline: Status: Acute (2) Vaginal vault prolapse: Status: Acute (3) Anticoagulated: Status: Acute (4) Antiphospholipid antibody syndrome: Status: Acute (5) Single kidney: (6) Stress incontinence, female: Assessment and Plan ? Patient counseled regarding above conditions.? Educational materials given to patient. 1. Pelvic Organ Prolapse - Stage 2 cystocele and vag vault, recurrent .? This diagnosis and its etiology was discussed with the patient.? Treatment options were discussed including: expectant management, pessary trial, and surgical intervention. We briefly discussed risks and benefits of surgery. All surgery for prolapse is not 100% successful and there is a chance of recurrence or failure. She declines a Pessary Trial for Prolapse she desires surgery my recommendation = robotic laparoscopic sacral colpopexy, mid urethral sling, cystoscopy see below for counseling She has had multiple prior surgeries to include hysterectomy, left nephrectomy, abdominal wall hernia mesh repair, cholecystectomy. She reports that after the most recent surgery, which was the cholecystectomy, that she did not have significant adhesions and that her prior mesh repair looked good 2. Stress Urinary Incontinence with urethral hypermobility:? This diagnosis was discussed with the patient. The etiology was explained. Treatment options were discussed including expectant management, pelvic floor exercises, pessary trial, and surgical intervention (mid-urethral sling, Lamb urethropexy, P-V sling, [place] urethral plication, urethral bulking injection).? Risks and benefits of surgery were briefly outlined. 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 Success rate of being dry from stress incontinence is about 80-85%; another 10-15% of patients are markedly improved but not cured;? 1-2% will fail, and 1-2% will need the sling cut because it is too tight.? The risk of temporary urinary retention requeiring temporary catheterization is about 15-20%; risk of urinary retention requiring sling release procedure is about 1-2%, as noted above.? We discussed the small 1-3% of mesh erosion as well as the small risk of de asya urgency.? This procedure is not designed to treat Urge Incontinence symptoms; however, 30-50% of patients with overactive bladder/ urgency urinary incontinence will have improvement in these symptoms, in 30% these symptoms will stay the same, and in 20-30% these symptoms will worsen. see below for counseling 3. Overactive bladder and urge incontinence.?? This diagnosis and its etiology was discussed with the patient.? Treatment options were discussed including: Behavior changes ( Limit fluid intake, Avoiding fluid intake 3 hours before bedtime, Avoiding bladder irritants / follow bladder diet, Bladder training exercises), Kegel / pelvic floor muscle exercises,? OAB Medications, and procedures to include:? bladder botox A injections, Interstim, and PTNS.?? Doing well on oxybutynin 5 mg b.i.d., in terms of controlling her overactive bladder symptoms, but does have side effects with dry mouth. We discussed switching to long-acting oxybutynin, at the same Dose or a lower dose.She prefers the same dose, we will start oxybutynin XL 10 mg a day 4. History of antiphospholipid syndrome, anticoagulated for this, on Coumadin, uses a heparin bridge History of pericarditis -needs medical and cardiac clearance prior to surgery Surgical Counselling Note Patient seen for surgical counselling.? She desires surgical repair. Please see? H & P for exam and discussion. Date of procedure:?? may 17, 2025 Preoperative diagnosis:? Stage II recurrent prolapse, vaginal vault, cystocele Stress incontinence Planned Procedure:?? Robotic laparoscopic sacral colpopexy Mid urethral sling Cystoscopy Prior left nephrectomy so only has right kidney and right ureter remaining Prior upper midline scar for the nephrectomy, then developed a hernia, has hernia mesh in place. Might need to make initial scope insertion on left or right side History of DVT and PE, antiphospholipid syndrome, anticoagulated, currently on a heparin bridge, we will restart the heparin postop day 1 evening as well as Coumadin We will plan to keep overnight. If she is feeling well that evening she can go home Recent medical and cardiac clearance obtained. Recent normal echocardiogram. Postop Meds Tylenol 1000 mg, ?3 times a day? Motrin 400 mg ? 3 times a day Oycodone 5 mg,? take 1 pill every 4-6 hr as needed, # 15? Colace,? 1 pill BID, for constipation Patient counseled extensively about the Risks, Benefits, and Alternatives to surgery.? She was offered the opportunity to ask any questions, and all questions were answered. ? Surgical Risks include: Bleeding, Hemorrhage, Transfusion, Infection (especially wound or bladder), Injury to adjacent organs (especially bladder, ureter, bowel, blood vessels, nerves), Postop or Chronic Pain, need for Reoperation, and Life-threatening event (especially M.I., CVA, PE, DVT). Procedure Risks include: Failure to Cure condition, Recurrence of condition months or years later, Urinary incontinence, Voiding dysfunction or Urinary Retention with prolonged catheter use, Poor wound healing, Erosions of any mesh or graft used, Dyspareunia, Vaginal scarring or narrowing, Need for additional surgery (immediate or delayed).? The expected cure and improvement and failure rates were discussed. Patient counseled to avoid the following for 6 weeks after surgery: (1) Impact sports (like running or jumping), walking and stairs OK (2) Lifting over 20# (3) Sexual intercourse No limits after 6 weeks. ? Good exercise tolerance, > 4 Mets. Her current medications were reviewed, and instructions given over which to use and which to discontinue before surgery.? Post-operative care instructions reviewed.? We discussed post-operative pain: Pain should be in the mild-moderate range, but can be moderate-severe for the first few days.?? Prescriptions will typically be given for (1) acetaminophen (Tylenol) and (2) non-steroidal anti-inflammatory drug (NSAID, like Motrin or Naprosyn), use both together, around the clock. Prescription will also be given for a (3) narcotic pain medication. Use the narcotic as needed, as a booster to the Tylenol and NSAID. You might need 0-4 narcotic pills a day typically. The narcotic will only be needed for a few days.?? Gradually use less of the narcotic, but continue the Tylenol and NSAID.? After a few days, the narcotic should no longer be needed, and only the Tylenol and NSAID will be needed.? Warm packs or cold packs can also be used for pain.??Do not drive for as long as you are using the narcotic pain medication? - this should only be a few days.?? Constipation is associated with use of narcotic pain medications, and can be improved with use of a stool softener, or fiber, or a mild laxative.? If you are sent home from the hospital with a Canseco Catheter in place:? please call the office on the day after surgery We will usually remove the catheter 2-4 days after surgery: a. You will perform an at home Canseco catheter removal -or- b. You will come in to the office for a voiding trial, (For some unusual surgeries, we might leave the catheter in for up to 2 weeks, and then remove it.) Instructions for at home Canseco catheter removal..... For at-home Canseco catheter removal, this can be done on postop day 2 or 3 or 4, depending on various factors. 1. At 6 or 7 a.m., have the patient cut the Canseco catheter with scissors, while standing in a shower or bath tub. a. Cut the catheter right in the middle of the tubing, about 6 inches from the body. b. The sterile water that is inside the Canseco balloon will leak all over the floor of the shower or bath tub. This is expected. c. The catheter will either fall out of the urethra, or just gently pull on it and it will come out. 2. Now, the bladder will gradually fill up over the next few hours. 3. Go ahead and empty the bladder when you feel an urge to void. Please note how strong the urine stream is. a. If the urine stream is normal or close to normal, then everything is good to go. b. If the urine stream is slow or you can not void, then return to the clinic in the afternoon. We will place another Canseco catheter. We will repeat the voiding trial in 3-4 days. 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 Easy bruisability Spinal stenosis Graves' disease Hypothyroidism Single kidney History of dumping syndrome Neuropathy RLS (restless legs syndrome) Lower GI bleed (2016) Osteoarthritis Thyroid cancer (2005) Kidney donor (2002) Kidney disease Clostridium difficile carrier Colon cancer COVID-19 virus infection (04/2022) Pleuritis Lupus Pulmonary embolism DVT (deep venous thrombosis) Antiphospholipid antibody syndrome Pericarditis Surgical History History of total left hip replacement (2020) Hx of arthroscopy of right knee (2015) Hx of thyroidectomy (2005) History of hysterectomy (2001) Hx of hernia repair (2016) Hx of appendectomy (12/24/15) Hx of eye surgery (2010) Social History household members: spouse Smoking Status: Former smoker alcohol intake: current Meds Home Medications and Allergies Home Medications ?Medication ?Instructions ?Recorded ?Confirmed ?Type calcitriol 0.5 mcg capsule 0.5 mcg PO DAILY 10/20/22 05/07/25 History colchicine 0.6 mg capsule 0.6 mg PO BID Chronic pericarditis 10/20/22 05/07/25 History diazepam 5 mg tablet 5 mg PO BEDTIME 10/20/22 05/07/25 History enoxaparin 40 mg/0.4 mL 40 mg SUBCUT DAILY 10/20/22 05/07/25 History subcutaneous syringe (Lovenox) levothyroxine 88 mcg tablet 88 mcg PO DAILY 10/20/22 05/07/25 History pantoprazole 40 mg tablet,delayed 40 mg PO DAILY 10/20/22 05/07/25 History release ropinirole 3 mg tablet 3 mg PO QPM RLS 10/20/22 05/07/25 History warfarin 5 mg tablet 5 mg PO SEEINSTR 10/20/22 05/07/25 History acetaminophen 325 mg tablet 650 mg (2 x 325 mg) PO Q6HR #120 10/31/22 05/07/25 Rx tabs hydrocodone 5 mg-acetaminophen 325 1 tab PO Q4-6H PRN Pain, Moderate 10/31/22 05/07/25 Rx mg tablet (4-6) #40 tabs hydroxyzine pamoate 25 mg capsule 25 mg PO Q4HR PRN Nausea And 10/31/22 05/07/25 Rx Vomiting #40 caps metoclopramide HCl 5 mg tablet 5 mg PO Q6H #40 tabs 10/31/22 05/07/25 Rx ondansetron 4 mg disintegrating 4 mg PO Q8H #14 tabs 10/31/22 05/07/25 Rx tablet tramadol 50 mg tablet 50 mg PO Q4HR #40 tabs 10/31/22 05/07/25 Rx oxybutynin chloride 10 mg 10 mg PO DAILY #90 tabs 04/04/25 05/07/25 Rx tablet,extended release 24 hr ibuprofen 400 mg tablet 400 mg PO TID postop pain #30 tabs 05/07/25 05/07/25 Rx oxycodone 5 mg tablet 5 mg PO Q8H PRN postop pain #15 05/07/25 05/07/25 Rx tabs Allergies Allergy/AdvReac Type Severity Reaction Status Date / Time adhesive Allergy Severe It takes Verified 05/07/25 08:09 my skin off - Tegaderm is ok gabapentin AdvReac Severe Excessive Verified 05/07/25 08:09 bruising, APS flare hydroxychloroquine AdvReac Severe Night Verified 05/07/25 08:09 Terrors nortriptyline AdvReac Severe Excessive Verified 05/07/25 08:09 bruising, APS flare pregabalin (From Lyrica) AdvReac Severe Seizures Verified 05/07/25 08:09 during sleep Assessment & Plan Time-Based Coding :: [TOTAL MINUTES] spent with patient and on the chart (including review of chart, obtaining history, exam, reviewing outside data, placing orders, documenting exam and treatment plan, and counseling patient) on [DATE].
[2025-05-15 08:48] VITALS: BMI 28.2
[2025-05-17] VITALS (15 sets, daily range): BP systolic 98–131; BP diastolic 55–77; PULSE 61–91; RESP 12–28; TEMP 35.9–36.8; O2SAT 90–96; BMI 28.2; BMI 27.7
--- NOTE | 2025-05-17 08:36 | EKG_ITS ---
[address] [address] Test Date: 2025-05-17 Pat Name: Nina Orosco Department: Room: Gender: Female Tobacco Stripper Hand: Edward GALLEGOS : 1955 Requested By: Order Number: [id number] Reading MD: Deandre Celaya MD Measurements Intervals [place] Rate: 71 P: -26 RI: 152 QRS: 0 QRSD: 70 T: 52 QT: 442 QTc: 480 Interpretive Statements Normal sinus rhythm Nonspecific T wave abnormality Prolonged QT NO PRIOR TRACING Electronically Signed On 05-17-2025 9:34:50 PDT by Deandre Celaya MD
[2025-05-17] MEDS: ACETAMINOPHEN 325 MG TABLET 975 MG PO ×2 (08:59→16:44)
[2025-05-17] MEDS: LACTATED RINGERS 1,000 ML 42 ML IV ×4 (08:59→16:45)
[2025-05-17] MEDS: PHENAZOPYRIDINE 100 MG TABLET 200 MG PO (08:59)
[2025-05-17] MEDS: SCOPOLAMINE 1 PATCH TOP (09:00)
[2025-05-17 09:01] LABS: Hematocrit 38.9 % (36-46); Hemoglobin 13.2 g/dL (12.0-16.0); Mean Corpuscular HGB Conc 34.0 % (30-36); Mean Corpuscular Hemoglobin 31.0 PG (26-34); Mean Corpuscular Volume 91.2 fL (80-100); Platelet Count 217 X10^3/uL (150-400)
[2025-05-17 09:14] LABS: Blood Urea Nitrogen 18 mg/dL (7-17); Calcium 8.7 mg/dL (8.4-10.2); Carbon Dioxide 24 mmol/L (22-32); Chloride 106 mmol/L (98-107); Estimated Glomerular Filt Rate 60 mL/min (>60); Glucose 103 mg/dL (70-99); HEMOLYSIS < 15 (0-50); Potassium 4.0 mmol/L (3.4-5.1); Sodium 139 mmol/L (137-145)
--- NOTE | 2025-05-17 09:20 | PM.PREOP ---
Pre-operative Note Interval Note History & Physical reviewed/Exam performed by Physician: Yes Changes to H&P: No
--- NOTE | 2025-05-17 11:22 | SUR.OPER ---
Lithotomy on padded OR bed. [place] Pad Positioner under torso. Head on pillow, arms padded and tucked at sides. Legs secured in padded yellow fins stirrups. Surgeon in room at time of positioning to assist and position patient. Final position approved by surgeon, all pressure points padded and covered.
[2025-05-17] MEDS: BUPivacaine 0.25% W/ EPI (PF) 30 ML VIAL 60 ML INJ (12:46)
[2025-05-17] MEDS: LIDOCAINE 1% W/EPI 10ML 20 ML INJ (12:48)
--- NOTE | 2025-05-17 15:36 | PM.GYNOP.1 ---
Operative Date/Time/Diagnoses Date of procedure: 05/17/25 Time of procedure: 10:45 Pre-op diagnosis: Vaginal vault prolapse, cystocele, stress incontinence, prior left nephrectomy, prior abdominal wall hernia repair with mesh Post-op diagnosis: other (Same, with dense anterior abdominal wall adhesions, requiring lysis of adhesions) Procedure & Clinicians Procedure: Procedures Operation Date: 05/17/25 09:45 Actual Procedure Side Surgeon p Robotic Laparoscopic Sacral Colpopexy, Perfecto Andrews MD s mid urethral sling, cystoscopy Perfecto Andrews MD Operative Notes Findings: Operative Note Surgeon:? Perfecto Andrews MD 911 Telecommunicator:?? Franco Danielson MD Pre-Op Diagnosis:?? Vaginal vault prolapse, cystocele Stress urinary incontinence Prior left nephrectomy, donor kidney Prior anterior abdominal wall hernia with mesh repair Post-Op Diagnosis:?? Same Dense anterior abdominal wall adhesions, requiring extensive lysis of adhesions Procedure:?? Robotic laparoscopic sacral colpopexy Laparoscopic lysis of adhesions, this added approximately 60 minutes extra to the case Mid urethral sling Cystoscopy Findings (brief): 1. In addition to the usual five x 8 mm robotic ports placed, there was an additional 5 mm port placed in the midline, detention between the umbilicus and pubic bone. This port and the right lower quadrant port were used initially to do laparoscopic lysis of adhesions (of the omentum and small bowel) to the anterior abdominal wall. This was prior to placing the other robotic ports and prior to docking the robot. 2. Prior hysterectomy with bilateral salpingo-oophorectomy 3. Prior anterior abdominal wall hernia mesh repair. The adhesions of the omentum and small bowel were to the prior hernia mesh repair, located around the umbilicus. The adhesions span to distance of about 5 x 10 cm internally. It effectively was blocking the supraumbilical port and the adjacent port on the right and the left side. After the adhesions were taken down we are able to place these ports 4. For the sacral colpopexy, the Restorelle mesh cut to 5 cm Ant and 8 cm Post, attached to vagina with sutures of 2-0 vicyrl. Excellent support of all 3 compartments. 5. TVT sling placed at mid-urethra, tension-free. 6. Cystoscopy with normal bladder, ureters, urethra, no trocar injury, bilateral ureteral jets. 7. She also has a history of DVT, on chronic anticoagulation with Coumadin, was switched to a heparin bridge, with Lovenox, prior to the surgery. She had more than usual bleeding during the case, primarily manifested at the sling, had about 250 cc of bleeding for the sling. Vaginal packing was placed to be removed in the morning. Date of Surgery:? May 17, 2025 Complications:? None, just a prolonged surgery due to the findings as noted above. Specimens:? None Anesthesia Technique: General endotracheal Estimated Blood Loss (mls):? 250 cc, all occurred with a sling, maybe an additional 10 or 20 cc of bleeding in the abdomen Blood Replacement (mls):? None Drains:? Cordova Condition:? Stable Procedure in detail: After consent was confirmed, the patient was taken to the operating room and?positioned with the [place]ancia Pad on the OR bed, and then placed under general anesthesia without incident. ?Sequential compression devices were in place and active. ?She received perioperative antibiotics. ?The arms were tucked and her legs were placed in the dorsal lithotomy position using the Erasto stirrups. ??She was then prepped and draped in the usual sterile fashion. ?An examination under anesthesia was consistent with the preoperative assessment. ?A three-way 16 urdu cordova catheter was placed. ?Attention was turned to the abdomen. All 6 trocar sites were injected with 0.25% Marcaine with epinephrine prior to incision. The initial 8 mm robotic port was placed on the right lateral abdomen, to avoid any mesh and adhesions from her prior hernia mesh repair. An 8?mm incision was made, the Veress needle was placed, and pneumoperitoneum was achieved at low flow of 5, reaching a pressure of about 12, with 2-3 liters of CO2 gas. The port was inserted without difficulty. The flow was turned up to 40 and the pressure set at 12. There were extensive dense adhesions across the anterior abdominal wall interfering with placement of the 3 middle ports, the right upper quadrant port, the supraumbilical port, in the left mid abdomen port. Therefore a 5 mm port was placed, in the midline, detention between the pubic bone and the umbilicus, as there were no adhesions in this area. The laparoscopic power seal was used to cauterize and cut all of the omental and small bowel adhesions to the anterior abdominal wall. There was no injury to the bowel. After this was done, the other for operating ports were placed. ?Three?additional 8 mm robotic ports were placed, along the same line across the abdomen: Supraumbilical, left mid abdomen, left lateral abdomen,?under direct visualization atraumatically.??An additional assistant grocery store manager 8 mm port was placed in the RUQ.?The patient was placed into steep Trendelenberg. ?The [employer]?robot was Docked from a side-dock approach, using 3 arms. ?During the dissection, monopolar scissors and bipolar [place]?forceps were used, and during suturing, these were replaced with 2 needle drivers. ?The LilLuxe grasper was used at the 3rd arm for surgical assistance. ?The 4th port was for the radiology physician assistant (passing sutures and suction / irrigation). ?At this point, I went to the robotic console to operate the robot.? ?The sigmoid was retracted, and the sacral promontory was identified, and the ureters were identifed lateral to the intended surgical planes.? She had a prior left nephrectomy so care was especially taken for the right ureter. ? The bladder was dissected off the vagina for a distance of 4-5 cm, and the vagina was dissected off the posterior peritoneum, most of the way down the posterior vagina, approx 6-8 cm. ??The [facility] Sacral Colpopexy tip with the Tracy Arch was used to expose the vagina for dissection. ?Retrograde fill of the bladder facilitated the dissection. ?The peritoneum over the sacral promontory was incised and the dissection was carried down into the pelvis. ?The loose areolar connective tissue overlying the sacral promontory was dissected until the sacrum was clearly identified. ?The anterior arm of the Y-polypropylene mesh was fashioned as noted above, and sutured to the anterior vagina with several interrupted 2-0 vicryl sutures. ?The posterior arm of the mesh was fashioned as noted above, and sutured to the posterior vagina with several interrupted 2-0 vicryl sutures. ?The mesh tail was grasped to create a Y shape, cut to the appropriate length, and then attached to the sacral promontory in a tension-free manner, using 2 sutures of 2-0 Ethibond (permanent suture). The sacral peritoneum was closed over the mesh with a running 2-0 PDS / V-Lock suture, and then continued to close the peritoneum over the vaginal part of the mesh. I left the console and scrubbed and gowned and returned to the OR table. The robot was undocked.? ? All port sites were inspected for hemostasis, and pneumoperitoneum released. The skin incisions were reapproximated with 4-0 monocryl, and then dermabond was placed. ?Attention was turned to the remainder of the vagina where excellent apical support was appreciated. ?Cystourethroscopy was performed which revealed right sided ureteral efflux of pyridium and no evidence of injury or suture material within the bladder urethra. Prior left nephrectomy. With the Cordova catheter in place, the anterior vaginal mucosa beneath and lateral to the urethra was injected with 10-20 cc of? 0.5% lidocaine / epinephrine 1:200,000.? A 2-3 cm midline incision was made at the level of the midurethra with a scapel. Metzenbaum scissors were used to dissect the vagina from the urethra and then create tunnels beneath the vaginal mucosa up toward the pubic bone on each side.? A marking pen was used to gael the skin just above the pubic bone and 2 cm from the midline bilaterally, and two small 8-10 mm incisions were made on the suprapubic skin.? The trocar was passed from the right vaginal tunnel, behind the pubic bone, to the right suprapubic incision, and this was repeated on the left side.? The Cordova catheter was removed, and cystoscopy was performed with a 70 degree lens. There was no trocar injury, and the bladder, ureters, and urethra were normal.? The Cordova catheter was reinserted.? The sling was pulled into position in a tension-free manner, and a Catalina clamp was easily passed between the sling and the urethra.? The plastic sheaths were removed to anchor the sling, and tension was checked again. The ends of the sling were trimmed just below the skin, and the skin incisions were cleaned and closed with dermabond. There was more than usual bleeding, so Gel-Foam was placed into each sling tunnel. The vaginal incision was closed with 2-0 vicryl in a running fashion. Vaginal packing was placed, to be removed in the morning at time of discharge with the Cordova catheter. Sponge, needle and instrument count was correct.? The patient tolerated the procedure well and was taken to the recovery room in stable condition. An additional set of hands was needed to perform the surgery, so a radiology physician assistant was needed for the case. The assistant grocery store manager provided retraction, suction, exposure, and passed in sutures and the mesh inplant, throughout the case. Perfecto Andrews MD UroGynecology & Pelvic Reconstructive Surgery [place], [place] Applied: implant(s) (Restorelle mesh for the sacral colpopexy, TVT mesh sling)
[2025-05-17] MEDS: fentaNYL 100 MCG/2 ML INJ IV (15:42)
--- NOTE | 2025-05-17 16:12 | SUR.PHASEI ---
report called to Keegan
--- NOTE | 2025-05-17 16:33 | SUR.PHASEI ---
Patient transferred to the floor with her belongings bag. IV saline locked. VS stable. O@ sat 88% RA, O2 reapplied by floor RN. Report given to Shaggy.
[2025-05-17] MEDS: KETOROLAC 30 MG/ML VIAL 15 MG IV (16:43)
--- NOTE | 2025-05-17 16:55 | PC.NURSE ---
Addendum entered by Mel Heredia RN 05/17/25 18:51: 1827 Dr. Andrews at the bedside. Patient to stay overnight. Plan to remove Canseco and packing in the AM. Patient with no complaints at this time. Original Note: 1620 Patient arrived to unit. Able to PATTERSON, weak, complaining of pain to vaginal regional/abdomen, will medicate. Patient AAO x's 4, denies numbness and tingling. Procedural incisions noted and open to air. Call light within reach and bed in lowest position.
[2025-05-17] MEDS: MORPHINE 4 MG/ML INJ IV (17:30)
[2025-05-17] MEDS: DOCUSATE 100 MG CAPSULE PO (20:53)
--- NOTE | 2025-05-17 21:11 | PC.NURSE ---
Per patient pt has one kidney and was told to not take NSAIDs unless dire need. Patient is not going to take ibuprofen or toradol as scheduled this admission.
[2025-05-18] MEDS: ACETAMINOPHEN 325 MG TABLET 975 MG PO ×2 (00:05→08:12)
--- NOTE | 2025-05-18 06:57 | PC.NURSE ---
Void trial successful at 0630.
[2025-05-18] MEDS: DOCUSATE 100 MG CAPSULE PO (08:12)
[2025-05-18 08:24] VITALS: BP 109/66; PULSE 64; RESP 15; TEMP 36.7; O2SAT 98
[2025-05-18] MEDS: IBUPROFEN 400 MG TABLET PO (10:53)
--- NOTE | 2025-05-18 10:53 | CM.DANOTE ---
Initial DCP Assessment Visit Note Reviewed EMR and team rounds for pt's medical status and updates. Met with pt/spouse at bedside to introduce self and role. Pt lives independently at baseline with her spouse in their own home in [place]. Her spouse will be transporting her home early afternoon today. She declines any CM d/c assistance or resources at this time. Payor: [facility] Adv Attending: Dr. Andrews Pt is a 69 year-old F post-op day 1 from a cystocele fixation surgery. She has a hx of vaginal/bladder prolaps with symptoms of vaginal bulge, pressure, incomplete bladder emptying, and heaviness. She has done well postoperatively, has well controlled pain, and has been medically discharged for home. She will have a f/u with Dr. Andrews in the next few weeks. Discharge Planning/Care Management CM Discharge Assessment Start: 05/17/25 15:38 Freq: Status: Active Protocol: Document 05/18/25 10:51 DPL (Rec: 05/18/25 10:53 DPL [id number]) Discharge Planning Assessment Assigned Discharge CAMERON [employer] Sander Provider [facility] Advance Directives? Yes Advance Directives No on File History Provided By Patient,Significant Other,Medical Record Has Patient been No admitted in last 30 days? Prior Living Mobile home Arrangements Household Members spouse Type of Drives own vehicle transporation used prior to admit Independent with ADL Yes 's Is patient alert and Yes oriented? Comment N/A Caregiver for No Another Comment No AD Barriers to No Discharge Discharge Plan Home Transportation Spouse bedside and can transport at d/c. Arrangement Referrals Initiated None needed Whiteboard Updated Yes in Patient Room with name and ext. # of Law Enforcement Instructor Review Status In Process Please Provide Date 05/18/25 Initial DC Assessment Was Performed Pre-Anesthesia Assessment Start: 05/15/25 08:48 Freq: Status: Active Protocol: Document 05/15/25 08:48 CAB (Rec: 05/15/25 09:56 CAB [id number]) Pre-Anesthesia Assessment PAC Comment Chart review 05/15/25 Patient Information Chart Review Reviewed Via Primary Care [facility] Provider Seen Specialist in Yes Last 12 Months Specialist Seen Nuclear Medicine Officer,Wall Steamer,Urologist Primary Language Faroese Preferred Language Faroese Oil Burner Mechanic Required No Height 167.64 cm Weight 79.379 kg Body Mass Index (BMI 28.2 ) Hx Anesthesia No Reactions Hx Family Anesthesia No Reaction Hx Malignant No Hyperthermia Hx Blood No Transfusions Hx Blood Transfusion No Reaction Anesthesia Review Yes: PAC courtesy re: Medical History 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 Does patient have No ELLIOTT/SOB Hx Sleep Apnea No CPAP/BIPAP use not prescribed Currently Taking a No Beta Naveen Can You Climb a No Flight of Stairs Without SOB Hx Chest Pain No Hx SOB No Hx Syncope or No Dizziness Anti-Coagulant Yes: Warfarin - bridging instructions coordinated by Therapy surgeon with PCP Has a Nuclear Medicine Officer Yes: Last visit 05/05/[address] Bradford @ [facility] Cardiac Testing No Hx Pacemaker/ICD No Comment Cardiac records scanned and in surgery folder Urinary Catheter No Present Hx Urinary Self No Catheterization Diabetes No Patient No Lactating No Hx Drug Resistant Yes: C-Diff x 2 Organism Presence of external Yes: Left hip prosthesis or internal medical devices? Month and year 09/21 received flu vaccine Received a COVID Yes vaccine? Marital Status Lives With spouse Patient Discharge Return Home Plan Description Do You Have Any No Spiritual Beliefs That May Affect Your HC Choices? Do You Have Any No Cultural Practices That May Affect Your HC Choices? Emergency Contact Bill () Name Emergency Contact [phone] or [phone] Phone Number Advance Directives? Yes Advance Directives No on File Power of Philosophy Lecturer Yes Power of Philosophy Lecturer Bill () Name Power of Philosophy Lecturer [phone] or [phone] Phone Number
--- NOTE | 2025-05-18 10:55 | PC.NURSE ---
IV D/C'D. DISCHARGE PAPERWORK DISCUSSED WITH PT/ . ALL QUESTIONS ANSWERED. SIG PAGE SIGNED AND PLACED IN CHART. PT WHEELED OUT AT 1589.
== END 2025-05-18 10:32 | disposition home or self-care (01) ==
LOC: OR 09:39 → AC 15:13
PROVIDERS: Student in an Organized Health Care Education/Training Program; PCP Student in an Organized Health Care Education/Training Program; Referring Provider Student in an Organized Health Care Education/Training Program; Visit Provider Obstetrics & Gynecology Gynecology
PROC: 0USG4ZZ Reposition Vagina, Percutaneous Endoscopic Approach (ICD-10-PCS; CPT 57425; principal; 2025-05-17 09:45)
PROC: 0TSD0ZZ Reposition Urethra, Open Approach (ICD-10-PCS; CPT 57425; 2025-05-17 09:45)
DX: N99.3 Prolapse of vaginal vault after hysterectomy (principal); N39.46 Mixed incontinence; N32.81 Overactive bladder; Z79.01 Long term (current) use of anticoagulants; D68.61 Antiphospholipid syndrome; Z90.5 Acquired absence of kidney; N73.6 Female pelvic peritoneal adhesions (postinfective)
CPT/HCPCS: 57425; 57288; S2900; 80048; 85027; 85610; 93005; 93010; C1781; C1771; J0689; J1171; J1885; J2272; J2704; J3010